=== PATIENT | female | born 1975 | race Hispanic/Latino ===

== ENCOUNTER 2021-04-16 03:04 | Emergency (ER) | payer OTHER ==
--- OUTSIDE RECORDS SUMMARY | 2021-04-16 03:11 | XMS REPORT | Continuity of Care Document ---
:1975 Author Organization [facility] t Address [address] [place] [address] Care Team Providers Name Role Phone Tyron NGO, Siraj Primary Care Physician DR STEFANY Attending Clinician Unavailable DR Marcella ROY Attending Clinician Unavailable DR CINTHIA Attending Clinician Unavailable JOSEPHINE Attending Clinician Unavailable AMARJIT Attending Clinician Unavailable DR SETH Attending Clinician Unavailable AMARJIT NGO Attending Clinician Unavailable AVERY FRY DR Attending Clinician Unavailable DR MEET Attending Clinician Unavailable Amarjit, Flory Attending Clinician 3, Pauline Mr Attending Clinician Unavailable DR Walter CAMP Attending Clinician Unavailable DR RACHEL Attending Clinician Unavailable Haseeb Benjamin MD Attending Clinician Eric NGO Attending Clinician DR Roxana YEE Attending Clinician Unavailable ERIC Attending Clinician Unavailable DR Bebeto VALENTE Attending Clinician Unavailable DR MESFIN Attending Clinician Unavailable DASHAWN Attending Clinician Unavailable ARCENIO Attending Clinician Unavailable DR Manoj SORTO Attending Clinician Unavailable DR TYRON Attending Clinician Unavailable DR MARVIN Attending Clinician Unavailable DR MAKEDA Attending Clinician Unavailable Parish CANCHOLA, LD Attending Clinician DR TRIPP Attending Clinician Unavailable YOANNA Attending Clinician Unavailable JANICE Attending Clinician Unavailable BJ Attending Clinician Unavailable SHANNON Attending Clinician Unavailable AUSTIN Attending Clinician Unavailable LUIS BENJAMIN Attending Clinician Unavailable DR BHAVESH Attending Clinician Unavailable DR MELQUIADES Attending Clinician Unavailable DR ELLIOTT Attending Clinician Unavailable DR STEFANY Admitting Clinician Unavailable DR Marcella ROY Admitting Clinician Unavailable DR CINTHIA Admitting Clinician Unavailable AMARJIT Admitting Clinician Unavailable SETH, Admitting Clinician Unavailable AMARJIT NGO Admitting Clinician Unavailable AVERY FRY DR Admitting Clinician Unavailable DR MEET Admitting Clinician Unavailable DR Walter CAMP Admitting Clinician Unavailable DR RACHEL Admitting Clinician Unavailable DR Roxana YEE Admitting Clinician Unavailable ERIC Admitting Clinician Unavailable DR Bebeto VALENTE Admitting Clinician Unavailable DR MESFIN Admitting Clinician Unavailable DASHAWN Admitting Clinician Unavailable DR Manoj SORTO Admitting Clinician Unavailable DR TYRON Admitting Clinician Unavailable DR MARVIN Admitting Clinician Unavailable DR MAKEDA Admitting Clinician Unavailable DR TRIPP Admitting Clinician Unavailable LUIS BENJAMIN Admitting Clinician Unavailable DR BHAVESH Admitting Clinician Unavailable DR MELQUIADES Admitting Clinician Unavailable DR ELLIOTT Admitting Clinician Unavailable Payers Payer Name Policy Type Policy Effective Date Expiration Date Sour ce Number MEDICAID - [id number] [facility] MEDICAID MGD 00:00:00 - Medical [facility] STAR [id number]-PresentMedic aid Contracted Problems Condition Condition Condition Status Onset Resolution Last Treating Co mments Source Name Details Category Date Date Treatment Clinician Date Cholelithi Cholelithi Disease Active C CA [facility] asis 6-24 [facility] - 00:00: Medical Center History of History of Problem Resolve Univers Chronic Chronic HL7.CCDAR2 [place] headaches [place] of History of Problem Resolve Univers malignant malignant HL7.CCDAR2 d ity of neoplasm neoplasm [place] of breast of breast Phys ici ans Chronic Chronic Problem Active Univers intractabl intractabl HL7.CCDAR2 ity of e e [place] headache, headache, Phys ici unspecifie unspecifie an s d headache d headache type type Acute Acute Problem Active Univers adjustment adjustment HL7.CCDAR2 ity of disorder disorder [place] with mixed with mixed Ph ysici anxiety anxiety ans and and depressed depressed mood mood Malignant Malignant Problem Active Uni vers neoplasm neoplasm HL7.CCDAR2 it y of of right of right [place] female female Physici breast, breast, ans unspecifie unspecifie d estrogen d estrogen receptor receptor status, status, unspecifie unspecifie d site of d site of breast breast Major Major Problem Active Univers depression depression HL7.CCDAR2 ity of , , [place] recurrent, recurrent, Ph ysici chronic chronic ans Anxiety Anxiety Problem Active Univers disorder disorder HL7.CCDAR2 it y of [place] Physici ans 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.CCDAR2 ity of disorder disorder [place] Physici ans Mild Mild Problem Active Univers intellectu intellectu HL7.CCDAR2 ity of al al [place] disability disability Ph ysici ans Anemia Anemia Problem Active Univers HL7.CCDAR2 ity of [place] Physici ans Personal Diagnosis Active 2021-04-03 M emoria history of 02:56:02 l malignant Personal Her magdaleno neoplasm history of of breast malignant neoplasm of breast Active Diagnosis 04/03/2021 [facility] Encounter Diagnosis Active 2021-02-23 Memoria for 02:48:30 l Judah test, Encounter result for negative test, result negative Active Diagnosis 02/23/2021 [facility][1] Atypical Problem Active 2021-04-03 Mem oria squamous 02:56:02 l cells of Atypical Herm jasen undetermin squamous ed cells of significan undetermin ce on ed cytologic significan smear of ce on cervix cytologic (ASC-US) smear of cervix (ASC-US) Active Problem 04/03/2021 [facility] Cervical Problem Active 2021-04-03 Mem oria high risk 02:56:02 l human Cervical Harry n papillomav high risk irus (HPV) 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 Active Problem 04/03/2021 [facility] Abnormal Problem Active 2021-04-03 Mem oria uterine 02:56:02 l and Abnormal Harry n vaginal uterine bleeding, and unspecifie vaginal d bleeding, unspecifie d Active Problem 04/03/2021 [facility] Unspecifie Diagnosis Active 2020-11-18 Memoria d ovarian 03:46:21 l cyst, Judah right side Unspecifie d ovarian cyst, right side Active Diagnosis 11/18/2020 [facility][1] Other Diagnosis Active 2021-04-03 Mem oria ovarian 02:56:02 l cyst, Other [place] right side ovarian cyst, right side Active Diagnosis 04/03/2021 [facility][1] Acute Diagnosis Active 2021-04-03 Mem oria vaginitis 02:56:01 l Acute Judah vaginitis Active Diagnosis 04/03/2021 [facility][1] Allergies, Adverse Reactions, Alerts Allergy Allergy Status Severity Reaction(s) Onset Inactive Treating Comm ents Source Name Type Date Date Clinician Cipro Cipro Active Info Not Memoria Available 4-22 l 00:00: Judah 00 Shellfis Propensi Active Shortness Of [facility] Bre[facility] - Containi adverse 00:00: Medical ng reaction 00 [employer] s Diclofen Propensi Active Anaphylaxis 2018-[address] [facility] ty to 1-06 [facility] - adverse 00:00: Medical reaction 00 [facility] Latex Propensi Active Dermatitis, 2018-[address] [facility] to Itching, 106 [facility] - adverse Rash 00:00: Medical reaction 00 [facility] Penicill Propensi Active Anaphylaxis 2018-[address] ins ty to 1-06 [facility] - adverse 00:00: Medical reaction 00 Center s Ciproflo Propensi Active Shortness Of 2016-[address] xacin ty to Breath 2-13 [facility] - adverse 00:00: Medical reaction 00 [facility] Penicill drug Active Anaphylaxis Uni vers ins allergy ity of [place] Physici ans Zipsor drug Active Anaphylaxis Unive rs CAPS allergy ity of [place] Physici ans Family History Family Member Diagnosis Comments Start Date Stop Date Source Natural father Cancer [facility] Natural father Hypertension [facility] Natural mother Cancer [facility] Natural mother Hypertension [facility] Social History Social Habit Start Date Stop Date Quantity Comments Source Sex Assigned At [facility] Medical [place] Tobacco use and 2020-04-02 2020-04-02 Never used [facility] - exposure 00:00:00 00:00:00 Medical Center Alcohol intake 2020-04-02 2020-04-[address] [facility] - 00:00:00 00:00:00 non-drinker of Medical Ce nter alcohol (finding) Smoking Status Start Date Stop Date Source Never smoker [facility] Medications Ordered Filled Start Stop Current Ordering Indication Dosage Frequency Signature Comments Components Source Medication Medication Date Date Medication? Clinician (SIG) Name Name Nerlynx Yes Maddie 6 tablets Memor ia 6-25 Avery with food l 02:56: Pelegrina Judah 02 Fluoxetine Yes Maddie 1 tablet Mem oria HCl 6-25 Avery l 02:56: Pelegrina [place] 02 Wellbutrin Yes Maddie 1 tablet Mem oria XL 6-25 Avery in the l 02:56: Pelegrina morning Lindy nn 02 Ibuprofen Yes Maddie 1 tablet Ted gomez 6-25 Avery with food l 02:56: Pelegrina or milk as He rmann 02 needed Abilify Yes Maddie 1 tablet Memori a 6-25 Avery l 02:56: Pelegrina Judah 02 Clonazepam Yes Maddie 1 tablet Mem oria 6-25 Avery l 02:56: Pelegrina Judah 02 Fareston Yes Maddie 1 tablet Memor ia 6-25 Avery l 02:56: Pelegrina [place]sm[place] 02 Prozac Yes Maddie not Memoria 6-25 Avery defined l 02:56: Pelegrina [place] 02 Nerlynx Yes Maddie 6 tablets Memor ia 6-25 Avery with food l 02:56: Pelegrina Judah 02 Fluoxetine Yes Maddie 1 tablet Mem oria HCl 6-25 Avery l 02:56: Pelegrina Judah 02 Wellbutrin Yes Maddie 1 tablet Mem oria XL 6-25 Avery in the l 02:56: Pelegrina morning Lindy nn 02 Ibuprofen Yes Maddie 1 tablet Ted gomez 6-25 Avery with food l 02:56: Pelegrina or milk as He rmann 02 needed Abilify Yes Maddie 1 tablet Memori a 6-25 Avery l 02:56: Pelegrina Judah 02 Clonazepam 2021-0 Yes Maddie 1 tablet Mem oria 6-25 Avery l 02:56: Pelegrina Judah Fareston Yes Maddie 1 tablet Memor ia 6-25 Avery l 02:56: Pelegrina Judah Prozac Yes Maddie not Memoria 6-25 Avery defined l 02:56: Pelegrina Judah Nerlynx Yes Maddie 6 tablets Memor ia 6-25 Avery with food l 02:56: Pelegrina Judah Fluoxetine Yes Maddie 1 tablet Mem oria HCl 6-25 Avery l 02:56: Pelegrina Judah Wellbutrin Yes Maddie 1 tablet Mem oria XL 6-25 Avery in the l 02:56: Pelegrina felecia Rodgersa nn 02 Ibuprofen Yes Maddie 1 tablet Ted gomez 6-25 Avery with food l 02:56: Pelegrina or milk as He rmann 02 needed Abilify Yes Maddie 1 tablet Memori a 6-25 Avery l 02:56: Pelegrina Judah Clonazepam Yes Maddie 1 tablet Mem oria 6-25 Avery l 02:56: Pelegrina Judah Fareston Yes Maddie 1 tablet Memor ia 6-25 Avery l 02:56: Pelegrina Judah Prozac Yes Maddie not Memoria 6-25 Avery defined l 02:56: Pelegrina Judah Miconazole Yes Maddie 1 Memoria 2-11 Avery applicatio l 00:00: Pelegrina n to [place] 00 affected area Miconazole Yes Maddie 1 Memoria 2-11 Avery applicatio l 00:00: Pelegrina n to Judah 00 affected area Miconazole Yes Maddie 1 Memoria 2-11 Avery applicatio l 00:00: Pelegrina n to Judah 00 affected area FLUOXETINE Yes 60mg Take [address] HCL (PROZAC 6-24 by mouth Luke s - ORAL) 16:06: once. [address] clonazePAM Yes 1mg QD Take [address] (KLONOPIN) 6-24 by [facility] - 1 MG tablet 16:06: daily . Med ical 37 Center BUPROPION 2019-0 Yes 300mg Take [address] HCL 6-24 mg by [facility] - (WELLBUTRIN 16:06: mouth . Med ical ORAL) 37 Center ibuprofen 2020-0 Yes 800mg Take [address] (ADVIL,MOTR 6-24 mg by [facility] - [place]) 800 MG 16:06: mouth Medica l tablet 37 every 6 Center (six) hours as needed for Pain. acetaminoph 2020-0 Yes 500mg Take [address] en 6-24 mg by [facility] - (TYLENOL) 16:06: mouth Medical 500 MG 37 every 6 Center tablet (six) hours as needed for Pain. HYDROcodone 2019-0 Yes 1{tbl} Take [address] -acetaminop 6-24 tablet by Bing es - hen (NORCO 16:06: mouth Medica l 5-325) 37 every 6 Center 5-325 mg (six) per tablet hours as needed for Pain. multivitami 2019-0 Yes 1{tbl} QD Take [address] n per 6-24 tablet by [facility] - tablet 16:06: mouth Medical 37 daily. Center metFORMIN 2019-0 Yes 500mg Take [address] (GLUCOPHAGE 6-24 mg by [facility] - ) 500 MG 16:06: mouth Medical tablet 37 once. Center albuterol 2019-0 Yes 1{ampul Take [address] (ACCUNEB) 6-24 e} ampule by [facility] - 0.63 mg/3 16:06: nebulizati Me dical mL 37 on every 6 Center nebulizer (six) solution hours as needed for Wheezing. diphenhydrA 0 Yes 25mg Take [address] MINE 6-24 by mouth [facility] - (BENADRYL) 16:06: every Medica l 25 mg 37 night as Center tablet needed for Sleep. Ferrous Ferrous 2017-10 Yes ONEL Q0.5D TAKE 1 Un anastacio Sulfate 325 Sulfate 325 0-04 [place] TABLET ity of (65 Fe) MG (65 Fe) MG 00:00: N.P. TWICE [place] Oral Tablet Oral Tablet 00 DAILY. Physici ans Desvenlafax Desvenlafax Yes KAIRAV Take one Univers ine ine - YOANNA Solis tablet ity of Succinate Succinate 00:00: daily. [place] ER 50 MG ER 50 MG 00 Physici Oral Tablet Oral Tablet a ns Extended Extended Release 24 Release 24 Hour Hour FLUoxetine FLUoxetine Yes Uni vers HCl TABS HCl TABS ity of [place] Physici ans ClonazePAM ClonazePAM Yes Q0.3333D TAKE 1 Univers 0.5 MG Oral 0.5 MG Oral TABLET 3 ity of Tablet Tablet TIMES [place] DAILY Physici NEEDED. ans HYDROCHLORO HYDROCHLORO Yes U nivers THIA TAB THIA TAB ity of [place] Physici ans Diflucan Diflucan Yes QD TAKE 1 Unive rs 150 MG Oral 150 MG Oral TABLET ity of Tablet Tablet DAILY [place] DIRECTED. Physici ans Hydrocodone Hydrocodone Yes 1 TAKE 1 Univers -Acetaminop -Acetaminop TABLET ity of hen 5-325 hen 5-325 PRN [place] MG Oral MG Oral Physici Tablet Tablet ans MetFORMIN MetFORMIN Yes QD TAKE 1 Uni vers HCl - 500 HCl - 500 TABLET ity of MG Oral MG Oral DAILY WITH Omar as Tablet Tablet FOOD. Physici ans Fareston 60 Fareston 60 Yes U nivers MG Oral MG Oral ity of Tablet Tablet [place] Physici ans Herceptin Herceptin Yes INFUSE ML Univers SOLR SOLR ity of [place] Physici ans DOCEtaxel DOCEtaxel Yes Unive rs SOLN SOLN ity of [place] Physici ans CARBOplatin CARBOplatin Yes U nivers SOLN SOLN ity of [place] Physici ans Ondansetron Ondansetron Yes U nivers 8 MG Oral 8 MG Oral ity o f Tablet Tablet [place] Disintegrat Disintegrat P hysici ing ing ans BuPROPion BuPROPion Yes KAIRAV 1 QD TAKE 1 U nivers HCl ER (SR) HCl ER (SR) YOANNA Solis TABLET ity of 200 MG Oral 200 MG Oral DAILY. [place] Tablet Tablet Physici Extended Extended ans Release 12 Release 12 Hour Hour Vital Signs Vital Name Observation Time Observation Value Comments Source Weight 2021-01-29 [facility] n 21:00:00 Height 2021-01-29 [facility] 21:00:00 Temperature Oral 2021-01-29 98.5 F [facility] rmann (F) 21:00:00 Diastolic (mm Hg) 2021-01-29 [facility] ermann 21:00:00 Systolic (mm Hg) 2021-01-29 [facility] rmann 21:00:00 Weight 2020-12-18 Khai Mcdonald n 20:30:00 Height 2020-12-18 Khai Mcdonald n 20:30:00 Temperature Oral 2020-12-18 96.6 F [facility] rmann (F) 20:30:00 Diastolic (mm Hg) 2020-12-18 [facility] Roxana ermann 20:30:00 Systolic (mm Hg) 2020-12-18 [facility] Mina rmann 20:30:00 Weight 2020-11-20 Khai Mcdonald n 20:45:00 Height 2020-11-20 Khai Mcdonald n 20:45:00 Diastolic (mm Hg) 2020-11-20 [facility] Roxana ermann 20:45:00 Systolic (mm Hg) 2020-11-20 [facility] rmann 20:45:00 Systolic blood 2020-10-15 113 mm[Hg] [facility] - pressure 10:04:00 [facility] Diastolic blood 2020-10-15 61 mm[Hg] [facility] - pressure 10:04:00 [facility] Heart rate 2020-10-15 78 /min [facility] - 10:04:00 [facility] Respiratory rate 2020-10-15 20 /min [facility] - 10:04:00 [facility] Oxygen saturation 2020-10-15 100 /min [facility] St [facility] - in Arterial blood 10:04:00 [facility] nter by Pulse oximetry Body weight 2020-10-[address] [facility] - 09:58:00 [facility] BMI 2020-10-15 28.90 kg/m2 [facility] - 09:58:00 [facility] BP Systolic 2018-07-05 99 mm[Hg] [facility] 10:26:00 [place] Physician s BP Diastolic 2018-07-05 63 mm[Hg] [facility] 10:26:00 [place] Physician s Height 2018-07-05 68 [in_us] University 10:26:00 [place] Physician s Weight 2018-07-05 168 [lb_av] [facility] 10:26:00 [place] Physician s Body Mass Index 2018-07-05 25.54 kg/m2 University o f Calculated 10:26:00 [place] Physician s Heart Rate 2018-07-05 72 /min [facility] 10:26:00 [place] [facility]ician s Respiration Rate 2018-07-05 16 /min [facility] 10:26:00 [place] Physician s O2 SAT 2018-07-05 100 % [facility] 10:26:00 [place] Physician s BP Systolic 2018-06-22 100 mm[Hg] Location: [facility] 16:14:00 Position: [place] Physician s Sitting BP Diastolic 2018-06-22 62 mm[Hg] Location: [facility]; [facility] 16:14:00 Position: [place] Physician s Sitting Height 2018-06-22 68 [in_us] University 16:14:00 [place] Physician s Weight 2018-06-22 167.4 [lb_av] University 16:14:00 [place] Physician s Body Mass Index 2018-06-22 25.45 kg/m2 University o f Calculated 16:14:00 [place] Physician s Temperature 2018-06-22 98.2 [degF] [facility] 16:14:00 [place] Physician s Heart Rate 2018-06-22 68 /min [facility] 16:14:00 [place] Physician s Respiration Rate 2018-06-22 16 /min [facility] 16:14:00 [place] Physician s O2 SAT 2018-06-22 100 % [facility] 16:14:00 [place] Physician s Procedures Procedure Date / Time Performing Clinician Source Performed MR BREAST BILATERAL WITH & 2020-10-15 12:00:00 Amarjit, Natalia N az [facility] - WITHOUT IV CONTRAST Medical Cent er [QLH] CBC (INCLUDES 2018-06-22 [facility] DIFF/PLT) Physicians [QLH] CMP W/EGFR 2018-06-22 00:00:00 University [facility] Physicians History of Axillary University o f [place] lymphadenectomy Physicians History of Pancreatectomy Univer [facility] Physicians History [facility]en[facility] Physicians History of Tonsillectomy [facility] Physicians History of Loop [facility] [place] electrosurgical excision Physici ans procedure Plan of Care Planned Activity Planned Date Details Comments Source Future Scheduled 2020-10-[address] [facility] - Test 00:00:00 (12+) [code = [facility] DEPRESSION SCREENING (12+)] Future Scheduled 2020-06-[address] [facility] - Test 00:00:00 (#1) [code = Medical Center INFLUENZA VACCINE (#1)] Future Scheduled [address] [facility] - Test 00:00:00 malignant neoplasm of Medica l Center cervix (procedure) [code = 999319613] Encounters Start End Encounter Admission Attending Care Care Encounter Source Date/Time Date/Time Type Type Clinicians Facility Department ID 2019-12-15 Inpatient E [facility] [id number] [facility] 23:50:00 [facility] 2019-10-23 Inpatient E [facility] ECC [id number] [facility] 22:27:00 [facility] 2019-07-24 Inpatient C MCCALL, LONG [facility] RAD [id number] [facility] 09:30:00 [facility] 2019-04-03 Inpatient C MCCALL, [facility] RAD [id number] [facility] 09:00:00 [facility] 2019-04-03 Inpatient C MCCALL, [facility] RAD [id number] [facility] 09:00:00 [facility] 2019-03-21 Inpatient C MCCALL, [facility] CARDIO [id number] [facility] 17:00:00 [facility] 2019-01-08 Inpatient C MCCALL, [facility] RAD [id number] [facility] 09:00:00 [facility] 2017-09-26 Inpatient C POPATIA, [facility] CATH [id number] [facility] 11:00:00 [facility] 2017-07-05 Inpatient C CINTHIA, [facility] RAD [id number] [facility] 15:30:00 [facility] 2021-04-02 2021-04-02 Outpatient SEPTIMUS, [facility] [id number] [place] 00:00:00 00:00:00 IVETT [address] 2021-03-24 2021-03-25 Emergency E ANN, C WWECC [id number] [facility]:58[facility] 2021-03-12 Outpatient [facility] [id number] [place] 00:00:00 00:00:[address] 2021-01-29 2021-01-29 Outpatient C Funsho C [facility] [id number] [facility] 16:00:00 16:00:00 Jairo Maddox MD PhD PA PhD PA 2021-01-29 2021-01-29 Outpatient C [facility] [id number] [facility] 16:00:00 16:00:00 Jairo Maddox MD PhD PA PhD PA 2021-01-29 2021-01-29 Outpatient C [facility] [id number] [facility] 16:00:00 16:00:00 Jairo Maddox MD PhD PA PhD PA 2021-01-06 2021-01-06 Outpatient C AVERY [facility] RAD [id number] [facility] 15:01:00 23:59:00 Nas FRY [facility] 2021-01-01 2021-01-01 Outpatient C [facility] [id number] [facility] 13:31:00 13:31:00 Jairo Maddox MD PhD PA PhD PA 2021-01-01 2021-01-01 Outpatient C Funsh[facility] [id number] [facility] 13:31:00 13:31:00 Jairo Maddox MD PhD PA PhD PA 2021-01-01 2021-01-01 Outpatient C Funsh[facility] [id number] [facility] 13:31:00 13:31:00 Jairo Maddox MD PhD PA PhD PA 2020-12-19 2020-12-19 Outpatient C Funsho C [facility] [id number] [facility] 09:08:00 09:08:00 Jairo Maddox MD PhD PA PhD PA 2020-12-19 2020-12-19 Outpatient C [facility] [id number] [facility] 09:08:00 09:08:00 Jairo Maddox MD PhD PA PhD PA 2020-12-19 2020-12-19 Outpatient C Funsh[facility] [id number] [facility] 09:08:00 09:08:00 Jairo Maddox MD PhD PA PhD PA 2020-12-18 2020-12-18 Outpatient C Funsho [facility] [id number] [facility] 15:30:00 15:30:00 Jairo Maddox MD PhD PhD PA-GP PA-GP 2020-12-18 2020-12-18 Outpatient C [facility] [id number] [facility] 15:30:00 15:30:00 Jairo Maddox MD PhD PhD [facility] 2020-12-18 2020-12-18 Outpatient C Funsho C [facility] [id number] [facility] 15:30:00 15:30:00 Jairo Maddox MD PhD PhD [facility] 2020-11-20 2020-11-20 Outpatient C Funsho C [facility] [id number] [facility] 15:45:00 15:45:00 Jairo Maddox MD PhD PhD [facility] 2020-11-20 2020-11-20 Outpatient C Funsho C [facility] [id number] [facility] 15:45:00 15:45:00 Jairo Maddox MD PhD PhD [facility] 2020-11-20 2020-11-20 Outpatient C Funsho [facility] [id number] [facility] 15:45:00 15:45:00 Jairo Maddox MD PhD PhD [facility] 2020-11-18 2020-11-18 Outpatient C Funsho C [facility] [id number] [facility] 16:39:00 16:39:00 Jairo Maddox MD PhD PA PhD [place] 2020-11-18 2020-11-18 Outpatient C Funsho [facility] [id number] [facility] 16:39:00 16:39:00 Jairo Maddox MD PhD PA PhD [place] 2020-11-18 2020-11-18 Outpatient C Funsh[facility] [id number] [facility] 16:39:00 16:39:00 Jairo Maddox MD PhD PA PhD [place] 2020-11-17 2020-11-17 Outpatient C Funsho C [facility] [id number] [facility] 17:48:00 17:48:00 Jairo Maddox MD PhD PA PhD PA 2020-11-17 2020-11-17 Outpatient C Funsho C [facility] [id number] [facility] 17:48:00 17:48:00 Jairo Maddox MD PhD PA PhD PA 2020-11-17 2020-11-17 Outpatient C Funsho C [facility] [id number] [facility] 17:48:00 17:48:00 Jairo Maddox MD PhD PA PhD PA 2020-10-28 2020-10-28 Outpatient C Funsho C [facility] [id number] [facility] 14:33:00 14:33:00 Jairo Maddox MD PhD PA PhD PA 2020-10-28 2020-10-28 Outpatient C Funsho C [facility] [id number] [facility] 14:33:00 14:33:00 Jairo Maddox MD PhD PA PhD PA 2020-10-28 2020-10-28 Outpatient C Funsho C [facility] [id number] [facility] 14:33:00 14:33:00 Jairo Maddox MD PhD PA PhD PA 2020-10-28 2020-10-28 Outpatient C Fun[facility] [id number] [facility] 12:15:00 12:15:00 Jario Maddox MD PhD PhD [facility] 2020-10-28 2020-10-28 Outpatient C Funsho C [facility] [id number] [facility] 12:15:00 12:15:00 Jairo Maddox MD PhD PhD [facility] 2020-10-28 2020-10-28 Outpatient C Funsho C [facility] [id number] [facility] 12:15:00 12:15:00 Jairo Maddox MD PhD PhD [facility] 2020-10-17 2020-10-17 Outpatient Blaine DSOUZACLAIR [facility] [id number] [facility] 15:40:00 23:59:00 [facility] 2020-09-12 2020-09-12 Outpatient C CLAIR DSOUZA [facility] [id number] [facility] 15:24:00 23:59:00 Medica l [place] 2020-08-25 2020-08-25 Emergency E CONRADO, [facility] [id number] [facility] 10:49:00 11:38:00 ALMA DELIA Medica l [place] 2020-06-09 2020-06-09 Emergency E SETH, [facility] [id number] [place] 00:30:00 00:55:00 JAMES Medic al [place] 2020-06-01 2020-06-02 Emergency E RACHEL [facility] [id number] [place] 23:16:00 00:00:00 ROBERTH Medica l KAI [place] 2020-04-15 2020-04-15 Office Bonefas, [facility] 1.2.840.114 [id number] 11:41:14 15:50:34 Visit Myra T Pauline 350.1.13.21 0.2.7.2.686 [id number] 2020-04-15 2020-04-15 Office Eric, [facility] 1.2.840.114 [id number] 11:40:53 14:10:47 Visit Mitul Pauline 350.1.13.21 0.2.7.2.686 [id number] 2020-04-07 2020-04-07 Emergency E JOSELITO, [facility] [id number] 01:02:00 01:50:00 DANNY Medica l [place] 2020-04-03 2020-04-03 Emergency E RAMOS, [facility] [id number] 08:29:00 13:45:00 ROBERTH Medica l [facility] 2020-03-22 2020-03-22 Emergency E SIDRA, [facility] [id number] 13:23:00 14:52:00 GIANLUCA Medica l [place] 2020-03-21 2020-03-22 Emergency E ANN, [facility] [id number] 23:22:00 00:50:00 JAMES Medic al [place] 2020-03-21 2020-03-21 Emergency E JOSELITO, [facility] [id number] [place] 15:02:00 17:46:00 DANNY Medica l [place] 2020-03-20 2020-03-20 Emergency E ANN, [facility] [id number] [place] 20:27:00 22:15:00 JAMES Medic al [place] 2020-02-28 2020-02-28 Office Eric [facility] 1.2.840.114 [id number] 13:05:45 13:49:45 Visit Mitul Pauline 350.1.13.21 0.2.7.2.686 [id number] 2020-02-25 2020-02-26 Emergency E SETH, [facility] [id number] 23:26:00 00:35:00 JAMES Medic al [place] 2020-01-31 2020-01-31 [facility] 1.2.840.114 [id number] 14:45:33 15:59:18 Visit Mitul Pauline 350.1.13.21 0.2.7.2.686 [id number] 2020-01-17 2020-01-18 Outpatient JOHN MUIR [facility], [facility] [id number] [place] 00:00:00 00:00:00 DANIEL [address] 2020-01-17 2020-01-17 Emergency [facility], [facility] [id number] [place] 00:00:00 00:00:00 BRIAN [address] 2019-12-30 2019-12-30 Emergency E MACARIO, [facility] [id number] 07:53:00 09:30:00 DOMENICA Medica l [place] 2019-12-15 2019-12-16 Emergency E JOSELITO, [facility] [id number] 23:53:00 03:30:00 DANNY Medica l [place] 2019-11-28 2019-11-29 Inpatient E RAYMOND SMITH [facility] [id number] [place] 01:20:00 18:00:00 Medica l [place] 2019-11-26 2019-11-26 Emergency E ANN, [facility] [id number] [place] 03:27:00 04:45:00 JAMES Medic al [place] 2019-11-18 2019-11-18 Emergency E MARVIN, [facility] [id number] [place] 12:07:00 16:30:00 VANDANA Medica l [place] 2019-11-07 2019-11-07 Emergency E MARVIN, [facility] [id number] [place] 02:35:00 04:15:00 VANDANA Medica l [place] 2019-10-23 2019-10-24 Emergency E , [facility] [id number] [place] 22:33:00 02:00:00 WASIM Medica l [place] 2019-08-15 2019-08-15 Office Parish, [facility] 1.2.840.114 [id number] 13:16:12 14:16:12 Visit Jessica Carpenter 350.1.13.21 0.2.7.2.686 [id number] 2019-08-15 2019-08-15 Office Bonefas, [facility] 1.2.840.114 [id number] 11:45:01 12:57:36 Visit Myra Carpenter 350.1.13.21 0.2.7.2.686 [id number] 2019-03-29 2019-03-29 Emergency E CONRADO, [facility] [id number] [place] 17:30:00 20:30:00 ALMA DELIA Medica l [place] 2019-03-29 2019-03-29 Emergency E MHFB [facility] [id number] [facility] 16:59:00 16:59:00 2019-03-16 2019-03-16 Emergency E RACHEL, [facility] [id number] [place] 15:00:00 20:30:00 [facility]-02 2019[facility]03-02 [facility] [id number] [place] 16:06:00 23:59:00 KING Medica l [place] 2018-11-08 2018-11-08 Outpatient C AMARJIT NGO, [facility] CARDIO [id number] [place] 13:35:00 23:59:00 NATALIA Medic al [place] 2018-08-29 2018-08-29 Tanna LENZ [facility] [id number] Univers 15:00:00 15:00:00 t; TONI LENZ ity o f KAIRAV, M.D. [facility] 2018-07-06 2018-07-06 Appointmen JANICE, [facility] Community [id number] Univers 15:00:00 15:00:00 t; OLEKSANDR, Health and it y of Reny CAMACHO [facility] Kae emmanuel OLEKSANDR, Center - Physic i DAriesOAries Mckinney ans 2018-07-05 2018-07-05 Appointmen YOANNA [facility] [id number] Univers 10:00:00 10:00:00 t; TONI LENZ Health and it y of Irma MUÑOZ [facility] - Physici Mckinney ans 2018-07-04 2018-07-04 Appointmen YOHAN LORENZO [facility] [id number] Univers 15:00:00 15:00:00 t; ISABELA LORENZO i ty of [facility] Physici ans 2018-06-27 2018-06-27 Appointmen SHANNON [facility] [id number] Univers 15:00:00 15:00:00 t; SHELBY ORTEGA ity Irma RYAN [facility] 2018-06-22 2018-06-22 Appointmen AUSTIN [facility] [id number] Univers 15:45:00 15:45:00 t; [facility] Center - Phys ici Mckinney ans 2017-08-01 2017-08-02 Emergency E BHAVESH [facility] [id number] [place] 22:00:00 11:47:00 BLAZE Medica l Center 2017-07-17 2017-07-17 Emergency E REGINALDO GALLAGHER [facility] [id number] [place] 17:36:00 18:50:00 Medica l [place] 2017-04-04 2017-04-04 Outpatient [facility] [id number] Access 00:00:00 00:00:00 H, PROVIDER Mina diego 2016-08-12 2016-08-12 Outpatient [facility] [id number] Access 00:00:00 00:00:00 H, PROVIDER Mina diego 2015-11-17 2015-11-17 Outpatient [facility] [id number] Access 00:00:00 00:00:00 H, PROVIDER Mina diego 2015-11-04 2015-11-04 Outpatient [facility] [id number] Access 00:00:00 00:00:00 H, PROVIDER Mina diego 2015-10-28 2015-10-28 Outpatient [facility] [id number] Access 00:00:00 00:00:00 H, PROVIDER Mina diego 2015-10-24 2015-10-24 Outpatient [facility] [id number] Access 00:00:00 00:00:00 H, PROVIDER Mina diego 2015-10-23 2015-10-23 Outpatient [facility] [id number] Access 00:00:00 00:00:00 H, PROVIDER Mina diego 2015-10-09 2015-10-09 Outpatient [facility] [id number] Access 00:00:00 00:00:00 H, PROVIDER Mina diego 2015-09-25 2015-09-25 Outpatient [facility] [id number] Access 00:00:00 00:00:00 H, PROVIDER Mina diego 2015-09-24 2015-09-24 Outpatient [facility] [id number] Access 00:00:00 00:00:00 H, PROVIDER Mina diego 2015-09-22 2015-09-22 Outpatient [facility] [id number] Access 00:00:00 00:00:00 H, PROVIDER Mina diego 2015-09-16 2015-09-16 Outpatient [facility] [id number] Access 00:00:00 00:00:00 H, PROVIDER Mina diego 2015-07-14 2015-07-14 Outpatient [facility] [id number] Access 00:00:00 00:00:00 H, PROVIDER Mina diego 2014-05-23 2014-05-23 Outpatient [facility] [id number] Access 00:00:00 00:00:00 H, PROVIDER Mina diego 2014-04-04 2014-04-04 Outpatient [facility] [id number] Access 00:00:00 00:00:00 H, PROVIDER Mina diego Results Test Description Test Time Test Comments Results Result Sourc e Comments MRI ABD W/WO 2021-03-30 CONTRAST 08:26:16 [facility] 1975 Sex: F MR I OF ABDOMEN WITH AND WITHOUT GADOLINIUMHISTORY: Breast cancerLocation R 16TECHNIQUE: Axial T1, axial T1 echo, axial T2 fat-sat, coronal T1, coronal T2, coronal T2 dual echo, axial T1 post VIBE, coronal T1 post. Contrast: 19 mL Dotarem IV.COMPARISON: CT abdomen pelvis dated 03/13/2021. Bone scan dated 03/2021.FINDINGS:Lung bases: No effusions.Liver: Diffuse phase signal dropout at liver parenchyma compatible with steatosis. Previously described 3 cm area at the left lobe of liver, low signal on T1. On dual echo imaging, there is focal diffuse phase signal dropout in this area compatible with focal steatosis. Postcontrast, no abnormal enhancement is seen in the area. Gallbladder: Absent. No biliary dilatation.Pancreas: The pancreatic tail is surgically absent. The remainder of the pancreas appears normal.Spleen: Spleen is absent. A small splenule left upper quadrant abdomen measuring 2.7 cm.Kidneys: Unremarkable.Adrenals : UnremarkableBowel: Visible bowel loops are unremarkable.Vascular : Normal size and enhancement.Lymph Nodes: No evidence of lymphadenopathy in the abdomen.Osseous: No aggressive features.Abdominal wall: Postsurgical changes at the midline abdomen.IMPRESSION:1. Previously described 3 cm area at the medial left lobe of liver corresponds to benign focal hepatic steatosis. No suspicious lesions.2. Note prior splenectomy and distal pancreatectomy. Cholecystectomy.Elect ronically signed by: Dianna Mancilla MD 03/30/2021 8:26 AM CDT U/S GUIDANCE 2021-03-27 15:32:21 [facility] 1975 Sex: F Pr ocedure: Ultrasound-guided left brachial vein accessLocation: [id number] Indication: Need for IV access.Comparison: NoneTechnique: Patient was placed supine on a stretcher and the left upper arm prepped and draped. Ultrasound was used to assess the upper arm vasculature.Paired brachial veins are noted. The basilic and cephalic veins are not identified. 1% lidocaine was given. Using ultrasound guidance, one of the brachial veins was accessed with a 21-gauge needle and 5 Bengali micropuncture catheter. An ultrasound image was stored for documentation. The catheter was left in place for IV access. Patient tolerated the procedure well.Impression: Successful image guided brachial vein access.Electronically signed by: Lew France MD 03/27/2021 3:32 PM CDT SARS-CoV (RAPID ANTIGEN) WW 2021-03-25 01:37:00 Test Item Value Reference Range Interpretation Comme nts SARS-CoV (ANTIGEN) (test code = NEGATIVE NEGATIVE COVAG) COVID AG (test code = COVAGC) This test has been marketed under the FDA Emergency Use Authorization (EUA) to meet challenges of the COVID-19 pandemic. The validation standards normally enforced by the FDA and the [employer] of the [place] [employer] (CAP) are more stringent than those required for this test. Therefore, the result should be interpreted with caution and close attention to other clinical and epidemiological data NM BONE SCAN WHOLE BODY IMAGE W [id number] 15:14:40 [facility] 1975 Sex: FBone scanLocation Code: [id number] HISTORY: Finding of serum tumor marker levelCOMPARISON: None.Te chnique: Routine anterior and posterior whole body images of following administration of 25 mCi of technetium 99m MDP. Spot images of the pelvis and proximal femurs were obtained, as well.FINDINGS: There is no abnormal uptake to suggest osseous metastatic disease. Renal excretion is physiologic. Minimal uptake adjacent to the left proximal femur may be secondary to prior trauma. Degenerative changes are noted in the knees.IMPRESSION: No evidence of metastases or other acute osseous abnormality.Electronically signed by: Percy Corral MD 03/16/2021 3:14 PM CDT ABDOMEN AND PELVIS WITH [id number] 11:25:11 [facility] 1975 Sex: FExam: CT abdomen and pelvis with contrast.CLINICAL HISTORY: Primary malignant neoplasm of female right breast; Finding of serum tumor marker level.LOCATION: D4.FINDINGS: Following the administrationof oral and 100 mL Isovue-300 intravenous contrast, multislice axial images are obtained through theabdomen and pelvis during the venous and delayed phases. Coronal and sagittal reconstructed images are obtained and are used in interpretation. Creatinine and GFR are not given.Comparison is made with CT abdomen/pelvis with contrast dated April 03, 2020.Diffuse low density of the liver is suggestive offatty infiltration but not accurately evaluated with contrast. There is a 3.7 cm ill-defined area of hypodensity within the left hepatic lobe. This was not present on the previous study. The liver is at upper size limits measuring 15.1 cm craniocaudal at the midclavicular line which is increased from the previous study. The gallbladder has been surgically removed. The spleen and pancreatic tail have also been surgically removed, stable from the prior exam. The adrenal glands and kidneys are within normal limits. There are bilateral ovarian cysts measuring 3.4 cm and 2.1 cm on the right and on the left measuring 1.9 cm and 1.6 cm. Only a 2.5 cm left ovarian cyst was seen on the previous study. There is an intrauterine device that appears appropriately positioned. There is no significant adenopathy. No free fluid or fluid collections are evident. No focal signs of inflammation are noted. The appendix is normal in appearance. There is a pars defect on the left at L5. Bilateral stable Bartholin's gland cysts are noted measuring 2.4 cm on the right and 3.5 cm on the left. No acute skeletal or soft tissue abnormalities are identified.IMPRESSION:1. There is a 3.7 cm ill-defined area of hypodensity within the left hepatic lobe that was not present on the previous study. No associated contrast enhancement is evident and this may represent focal increased fatty infiltration. However, MRI abdomen without and with contrast would be beneficial for further evaluation and to exclude underlying mass/metastatic lesion.2. Borderline hepatomegaly is increased from the previous study.3. Bilateral ovarian cysts are increased from the previous study measuring up to 3.4 cm.*One or more of the following radiation dose reduction techniques was used: automated exposure control, adjustmentof mA and/or KV according to patient size, and/or utilization of iterative reconstruction technique.Electronically signed by: Arnoldo Jones MD 03/13/2021 11:25 AM CDT CHEST W/ [id number] 11:09:12 [facility] 1975 Sex: FEXAMINATION:CT CHEST W/ CONTRASTCLINICAL INDICATION:Female, 45 years old with Finding of serum tumor marker levelTECHNIQUE: Axial post-contrast contiguous images were obtained through the chest followed by coronal and sagittal multiplanar reformations.One or more of the following dose reduction techniques were used: Automated exposure control, adjustment of the mA and/or kV according to patient size, and/or iterative reconstruction. COMPARISON: 03/16/2019FINDINGS:Chest:Medical Devices: None.Lymph Nodes: There are no pathologically enlarged supraclavicular, mediastinal, or axillary lymph nodes.Lungs/Airways/Pleura: Right upper lobe granuloma is stable. There is no nodule, mass, consolidation, or effusion. The central airways are patent. Heart/Vessels: Heart is normal in size. No coronary artery atherosclerosis is identified. No pericardial effusion is present. Aorta is normal in caliber and contour. No atherosclerosis is identified. Central pulmonary arteries are normal in size.Soft Tissues: Visualized thyroid gland is normal. The esophagus is normal. No soft tissue abnormality of the chest is demonstrated. Clips within medial right breast and right axilla again noted.Upper Abdomen:Abdomen: Visualized upper abdominal structures are within normal limits.Bones: No acute abnormality or suspicious bony lesion.IMPRESSION:No acute intrathoracic abnormality.Electronically signed by: Percy Corral MD 03/13/2021 11:09 AM CDT , MRI BREAST, WITHOUT / WITH IV CONTRAST, [id number] 16:20:00Unlisted Reason for Exam - Click Yes and Enter Reason Below->YesUnlisted Reason for Exam->Malignant neoplasm of unspecified site of right female breast [facility] : 1975 Sex: FMRN#: [id number] - MR, MRI BREAST, WITHOUT / WITH IV CONTRAST, BILATERAL BREAST MRI OF BOTH BREASTS: 10/15/2020LINICAL: 44 year old female with history of right breast cancer status post lumpectomy in 2018. Screening. Correlation is made with a mammogram dated 04-15-20. Comparison is made with a MRI dated 08-13-19. Multiplanar MR images of both brests is performed with and without intravenous gadolinium. 8 cc of Gadavist contrast was injected. DynaCAD was used. 1. Heterogenous fibroglandular tissue with mild background parenchymal enhancement. 2. RIGHT Breast: No suspicious enhaning masses. There are post lumpectomy changes in the posterior upper outer right breast. Susceptibility artifact is present in the retroareolar position at the site of prior benign biopsy. 3. LEFT Breast: No suspicious enhaning masses. Susceptibility artifact is present in the 3:00 position at the site of prior benign biopsy. 4. No suspicious lymphadenopathy. IMPRESSION: No MRI features of malignancy in either breast. The patient will be due for bilateral mammography in April 2021. Results and recommendations were discussed with the patient on 10-15-20. Lamine Peters M.D. rashawn/:10/15/2020 16:20:37 Normal Exam MRI BI-RADS: 2 Benign [id number] MR breast bilateral without & with IV [id number] 16:20:00Interface, External Ris In - 10/16/2020 6:40 AM CSTMRN#: [id number] - MR, MRI BREAST, WITHOUT / WITH IV CONTRAST, BILATERAL BREAST MRI OF BOTH BREASTS: 10/15/2020LINICAL: 44 year old female withhistory of right breast cancer status post lumpectomy in 2018. Screening. Correlation is made witha mammogram dated 04-15-20. Comparison is made with a MRI dated 08-13-19. Multiplanar MR images of both brests is performed with and without intravenous gadolinium. 8 cc of Gadavist contrast was injected. DynaCAD was used. 1. Heterogenous fibroglandular tissue with mild background parenchymal enhancement. 2. RIGHT Breast: No suspicious enhaning masses. There are post lumpectomy changes in the posterior upper outer right breast. Susceptibility artifact is present in the retroareolar position at the site of prior benign biopsy. 3. LEFT Breast: No suspicious enhaning masses. Susceptibility artifact is present in the 3:00 position at the site of prior benign biopsy. 4. No suspicious lymphadenopathy. IMPRESSION: No MRI features of malignancy in either breast. The patient will be due for bilateral mammography in April 2021. Results and recommendations were discussed with the patient on 10-15-20. Lamine Peters M.D. rashawn/:10/15/2020 16:20:37 Normal Exam MRI BI-RADS: 2 [id number] [facility]2020-09-14 10:20:00 Test Item Value Reference Range Interpretation Comments PROLACTIN (test 22.7 ng/mL Reference code = [id number]) Range Femal es Non- 3.0-30.0 10.0- 209.0 Postmenopaus al 2.0-20.0TEST PE RFORMED AT:[facility] [id number] [place] [address]OCJWMKACY LEACH MD FOLLICULAR STIMULATING HORMONE *WW*2020-09-14 10:20:00 Test Item Value Reference Range Interpretation Comments FSH (test code = 14.8 mIU/mL [id number]) Reference Range Follicular Pha se 2.5-10.2 Mid-cycle Peak 3.1-17.7 Luteal Phase 1.5- 9.1 Postmenopausal 23.0-116.3TEST PERFORMED AT:[facility] [id number] [place] [address]OSAFBKACY LEACH MD LUTEINIZING HORMONES WW2020-09-14 10:20:00 Test Item Value Reference Range Interpretation Comments LH (test code = 13.9 mIU/mL Referenc e [id number]) RangeFollicular Phase 1.9-12.5Mid-Cyc le Peak 8.7-76.3Luteal Phase 0.5-16.9Postmen opausal 10.0-54.7TEST P ERFORMED AT:[facility] [id number] [place] [address]KFOEDXIAO LEACH MD HIV *WW*2020-09-12 19:34:00 Test Item Value Reference Range Interpretation Comments HIV-1,2 and p24 (test code = NON-REACTIVE NON-REACTIVE CHIV) HEPATITIS C ANTIBODY *WW*2020-09-12 19:32:00 Test Item Value Reference Range Interpretation Comments HCAB (test code = HCAB) NON-REACTIVE NON-REACTIVE SYPHILIS SCREENING WW2020-09-12 19:12:00 Test Item Value Reference Range Interpretation Comments T PALLIDUM AB (test NON-REACTIVE NON-REACTIVE code = SYPHINT) SYPHC (test code = RPR test has been SYPHC) updated to Treponemal Immunoassay. Interpretation of results is similar HEPATITIS B SURFACE ANTIGEN *WW*2020-09-12 19:11:00 Test Item Value Reference Range Interpretation Comments HBSAG (test code = HBSAG) NON-REACTIVE NON-REACTIVE THYROID PANEL/SCREEN (TSH) *WW*2020-09-12 17:21:00 Test Item Value Reference Range Interpretation Comments TSH (test code = WTSH) 3.060 uIU/mL 0.358-3.740 CBC (INCLUDES AUTOMATED DIFFERENTIAL)*[id number] 16:58:00 Test Item Value Reference Range Interpretation Comments WBC (test code = WBC) 7.9 10\\S\\3/uL 4.5-11.0 RBC (test code = RBC) 3.72 10\\S\\6/uL 4.30-5.70 L HGB (test code = HBG) 11.8 g/dL 12.0-15.5 L HCT (test code = HCT) 37.1 % 35.0-44.0 MCV (test code = MCV) 99.7 fL 81.0-99.0 H MCH (test code = MCH) 31.7 pg 27.0-31.0 H MCHC (test code = MCHC) 31.8 g/dL 32.0-36.0 L RDW (test code = RDW) 12.4 % 11.5-14.5 PLT (test code = PLT) 355 10\\S\\3/uL 130-400 MPV (test code = MPV) 10.7 fL 9.4-12.4 NEUTROP # (test code = NE#) 4.7 10\\S\\3/uL 1.6-8.0 LYMPH # (test code = LY#) 2.4 10\\S\\3/uL 1.1-3.5 MONOCYTE # (test code = MO#) 0.5 10\\S\\3/uL 0.0-1.1 EOSINOPH # (test code = EO#) 0.2 10\\S\\3/uL 0.0-0.7 BASOPHIL # (test code = BA#) 0.1 10\\S\\3/uL 0.0-0.3 IG # (test code = IG#) 0.02 10\\S\\3/uL 0.00-0.06 NRBC # (test code = NRBC#) 0.00 10\\S\\3/uL 0.00-0.01 NEUTROPH % (test code = NE%) 59.5 % 35.0-73.0 LYMPH % (test code = LY%) 30.3 % 20.0-55.0 MONO % (test code = MO%) 6.8 % 2.5-10.0 EOSINOPH % (test code = EO%) 2.1 % 0.0-5.0 BASOPHIL % (test code = BA%) 1.0 % 0.0-2.0 IG % (test code = IG%) 0.3 % 0.0-0.8 NRBC% (test code = NRBC%) 0.0 % 0.0-0.2 MANDIFF (test code = WMDIFF) NO NO RBC MORPH (test code = NORMAL WRBCMOR) TISSUE [id number] 11:26:00Surgical Pathology Report Case: [id number] Authorizing Provider: Mitul Riley MD Collected: 04/02/2020 10:24 AM Ordering Location: [facility] Received: 04/02/2020 11:49 AM SERVICES Pathologist: Brie Nielson MD Specimens: A) - Gallbladder B) -Biopsy, Liver A. GALLBLADDER, CHOLECYSTECTOMY: - CHRONIC CHOLECYSTITIS AND CHOLELITHIASISB. LIVER, MASS, BIOPSY: - BENIGN LIVERPARENCHYMA, NEGATIVE FOR MALIGNANCY (SEE COMMENT) Signing Pathologist Direct Phone Line: [phone] signed by Brie Nielson MD on 04/08/2020 at 11:26 AMB. Sections show predominantlybenign liver parenchyma with portal triads and preserved hepatic plates. By immunostains, CK7 highlights the presence of bile ducts in the portal triads; while GATA3 and ER are predominantly negative. Additionally, reticulin shows preserved hepatic plates. No diagnostic features of malignancy or neoplasm are seen. Clinical/radiological correlation is recommended. If clinically indicated, procurement of additional material may be considered for further evaluation.Intradepartmental consultation: Dr. Sierra Eid has also reviewed part B of this case and concurs with the diagnosis.[id number], 83803, 65940, 81181 x 2, 55796Yhuaador of gallbladder without cholecystitis without obstruction. Liver mass.A. GallbladderB. Biopsy, liverA. Received fresh, labeled with the patient's name, MRN and "gallbladder"and consists of an intact gallbladder (9.2 x 3 x 2.8 cm) which has a clipped cystic duct. The serosais lavender-pink and smooth. A cystic duct lymph node is not present. The gallbladder is opened to re veal esteban-green viscous bile and multiple (greater than 20) bosselated yellow choleliths ranging 0.1-0.3 cm. The mucosa is esteban and trabeculated. The wall thickness is 0.1 cm. No gross lesions are identified. It Risk And Assurance Senior Manager sections are submitted.Ink code:Black: Cystic duct marginBlue: Hepatic bedSection codeA1: Cystic duct margin, en faceA2: Gallbladder wallB. Received fresh labelled with the patient's name, medical record number and "biopsy, liver" are 3 esteban soft tissue cores ranging 0.4-0.7 cm which are submitted in toto in B1.SHADIA Mcclellan PA ([facility])The interpretation of this case included the use of immunohistochemistry or special stains.Please see the immunohistochemistry results in the COMMENT section. Control Slides Examined: In-house known positive controls were evaluated along with the test tissue. These control slides run alongside of the patients sample show appropriate staining. Internal positive and negative controls when available are evaluated Immunohistochemistry technicaltesting was performed at [facility], Pathology Laboratory where it was developed and its performance characteristics were determined. It has not been cleared or approved by the U.S. Food and Drug Administration. The FDA has determined that such clearance or approval is not necessary. The test is used for clinical purposes. It should not be regarded as investigational or for research. This laboratory is certified under the Clinical Laboratory Improvement Amendments of 1988 (CLIA-88) as qualified to perform high complexity clinical laboratory testing.URINE [id number] 11:09:00 Test Item Value Reference Range Interpretation Comments Isolate 1 (test code = Lactobacillus species ISO1) CBC (INCLUDES AUTOMATED DIFFERENTIAL)*[id number] 12:25:00 Test Item Value Reference Range Interpretation Comments WBC (test code = WBC) 8.4 10\\S\\3/uL 4.5-11.0 RBC (test code = RBC) 2.86 10\\S\\6/uL 4.30-5.70 L HGB (test code = HBG) 7.6 g/dL 12.0-15.5 L HCT (test code = HCT) 24.5 % 35.0-44.0 LL MCV (test code = MCV) 85.7 fL 81.0-99.0 MCH (test code = MCH) 26.6 pg 27.0-31.0 L MCHC (test code = MCHC) 31.0 g/dL 32.0-36.0 L RDW (test code = RDW) 16.0 % 11.5-14.5 H PLT (test code = PLT) 265 10\\S\\3/uL 130-400 MPV (test code = MPV) 10.5 fL 9.4-12.4 NEUTROP # (test code = NE#) 4.3 10\\S\\3/uL 1.6-8.0 LYMPH # (test code = LY#) 3.1 10\\S\\3/uL 1.1-3.5 MONOCYTE # (test code = MO#) 0.9 10\\S\\3/uL 0.0-1.1 EOSINOPH # (test code = EO#) 0.0 10\\S\\3/uL 0.0-0.7 BASOPHIL # (test code = BA#) 0.0 10\\S\\3/uL 0.0-0.3 IG # (test code = IG#) 0.02 10\\S\\3/uL 0.00-0.06 NRBC # (test code = NRBC#) 0.00 10\\S\\3/uL 0.00-0.01 NEUTROPH % (test code = NE%) 51.1 % 35.0-73.0 LYMPH % (test code = LY%) 36.7 % 20.0-55.0 MONO % (test code = MO%) 11.1 % 2.5-10.0 H EOSINOPH % (test code = EO%) 0.4 % 0.0-5.0 BASOPHIL % (test code = BA%) 0.5 % 0.0-2.0 IG % (test code = IG%) 0.2 % 0.0-0.8 NRBC% (test code = NRBC%) 0.0 % 0.0-0.2 MANDIFF (test code = WMDIFF) NO NO RBC MORPH (test code = NORMAL WRBCMOR) URINALYSIS WITH MICRO *WW*2020-04-03 11:43:00 Test Item Value Reference Range Interpretation Comments COLOR (test code = COLU) YELLOW YELLOW CLARITY (test code = CLA) SLT HAZY CLEAR A GLUCOSE UR (test code = UA NEGATIVE NEGATIVE GLUCOSE) BILI UR (test code = BILE) NEGATIVE NEGATIVE KETONES UR (test code = OH) NEGATIVE NEGATIVE SP GRAVITY (test code = SPGR) 1.015 1.005-1.030 PH UR (test code = PH) 6.0 4.5-8.0 PROTEIN UR (test code = PU) NEGATIVE NEGATIVE UROBIL UR (test code = UROQ) 0.2 EU/dL 0.2-1.0 NITRITE UR (test code = NEGATIVE NEGATIVE NITRITE) BLOOD UR (test code = UA BLOOD) NEGATIVE NEGATIVE LEUK ES UR (test code = LEUK) 2+ NEGATIVE A WBC UR (test code = UWBC) 12 /HPF 0-5 H RBC UR (test code = URBC) 1 /HPF 0-2 EPITH UR (test code = UEPC) MODERATE /LPF FEW A BACTERIA UR (test code = UBACT) FEW /HPF NONE A CAST UR (test code = CAST) /LPF NONE CRYSTAL UR (test code = CRYU) / LPF NONE MUCUS UR (test code = MUC) / HPF NONE AMORPH UR (test code = AARON) / HPF NONE TRICH UR (test code = UTRICH) /HPF NONE YEAST UR (test code = UY) /HPF NONE SPERM UR (test code = USPERM) /HPF NONE COMPREHENSIVE METABOLIC NEELY *WW*2020-04-03 10:12:00 Test Item Value Reference Range Interpretation Comments GLUCOSE (test code = 87 mg/dL 75-100 06D) SODIUM (test code = 136 mmol/L 136-145 01A) POTASSIUM (test code = 4.9 mmol/L 3.6-5.1 01B) CHLORIDE (test code = 105 mmol/L 98-107 04A) CO2 (test code = 02A) 24 mmol/L 22-32 ANION GAP (test code = 11.9 mmol/L ANG) BUN (test code = 05D) 14 mg/dL 7-18 CREATININE (test code 0.8 mg/dL 0.4-1.1 = 03E) GFR (test code = GFR) 87 mL/min/1.73m\\S\\2 >=90 L GFR 100 mL/min/1.73m\\S\\2 >=90 (test code = GFRAA) EGFR (test code = eGFR BY CKD-EPI EGFR) CALCULATION IS NOT RECOMMENDED FOR PATIENTS UNDER 18 YEARS OF AGE. BUN/CREA (test code = 17 12-20 BCR) CALCIUM (test code = 8.1 mg/dL 8.3-9.5 L 09D) BILI TOTAL (test code 0.7 mg/dL 0.2-1.0 = 11A) PROTEIN (test code = 7.0 g/dL 6.4-8.2 07D) ALBUMIN (test code = 2.5 g/dL 3.5-4.8 L 08D) GLOBULIN (test code = 4.5 g/dL 1.5-3.8 H GLB) ALB/GLOB (test code = 0.5 1.0-2.6 L AGRR) ALK PHOS (test code = 69 IU/L 42-121 35A) AST (test code = 30A) 64 IU/L <=42 H ALT (test code = 31A) 50 IU/L <=78 AMYLASE *WW*2020-04-03 10:12:00 Test Item Value Reference Range Interpretation Comments AMYLASE (test code = 10A) 53 U/L 28-100 LIPASE SERUM WW2020-04-03 10:12:00 Test Item Value Reference Range Interpretation Comments LIPASE (test code = 60A) 85 IU/L 73-393 SERUM MONOCLONAL *WW*2020-04-03 10:02:00 Test Item Value Reference Range Interpretation Comments PREG SRM (test code = PGS) NEGATIVE NEGATIVE POCT-GLUCOSE [id number] 08:37:00 Test Item Value Reference Range Interpretation Comments POC-GLUCOSE METER 83 mg/dL 70-110 : TESTED A T [facility] (BEAKER) (test code = MARGARITALEONARD RYAN OR, 1538) [id number]: Manager Ct/Techni lillian ID = [id number] for WATS ON, ZUHAIR URINE [id number] 10:36:00 Test Item Value Reference Range Interpretation Comments Culture Observations THREE OR MORE SPECIES (test code = COB1) OF BACTERIA ISOLATED. PROBABLE CONTAMINATION. Culture Observations IDENTIFICATION AND (test code = COB17) SUSCEPTIBILITY NOT INDICATED. RECOLLECTION RECOMMENDED AMYLASE AND LIPASE *WW*2020-03-22 00:24:00 Test Item Value Reference Range Interpretation Comments AMYLASE (test code = 10A) 105 U/L 28-100 H LIPASE (test code = 60A) 264 IU/L 73-393 SERUM MONOCLONAL *WW*2020-03-21 16:12:00 Test Item Value Reference Range Interpretation Comments PREG SRM (test code = PGS) NEGATIVE NEGATIVE COMPREHENSIVE METABOLIC NEELY *WW*2020-03-21 16:12:00 Test Item Value Reference Range Interpretation Comments GLUCOSE (test code = 92 mg/dL 75-100 06D) SODIUM (test code = 140 mmol/L 136-145 01A) POTASSIUM (test code = 3.5 mmol/L 3.6-5.1 L 01B) CHLORIDE (test code = 107 mmol/L 98-107 04A) CO2 (test code = 02A) 27 mmol/L 22-32 ANION GAP (test code = 9.5 mmol/L ANG) BUN (test code = 05D) 15 mg/dL 7-18 CREATININE (test code 0.8 mg/dL 0.4-1.1 = 03E) GFR (test code = GFR) 84 mL/min/1.73m\\S\\2 >=90 L GFR 98 mL/min/1.73m\\S\\2 >=90 (test code = GFRAA) EGFR (test code = eGFR BY CKD-EPI EGFR) CALCULATION IS NOT RECOMMENDED FOR PATIENTS UNDER 18 YEARS OF AGE. BUN/CREA (test code = 18 12-20 BCR) CALCIUM (test code = 8.2 mg/dL 8.3-9.5 L 09D) BILI TOTAL (test code 0.5 mg/dL 0.2-1.0 = 11A) PROTEIN (test code = 7.3 g/dL 6.4-8.2 07D) ALBUMIN (test code = 2.6 g/dL 3.5-4.8 L 08D) GLOBULIN (test code = 4.7 g/dL 1.5-3.8 H GLB) ALB/GLOB (test code = 0.5 1.0-2.6 L AGRR) ALK PHOS (test code = 89 IU/L 42-121 35A) AST (test code = 30A) 63 IU/L <=42 H ALT (test code = 31A) 68 IU/L <=78 AMYLASE AND LIPASE *WW*2020-03-21 16:12:00 Test Item Value Reference Range Interpretation Comments AMYLASE (test code = 10A) 116 U/L 28-100 H LIPASE (test code = 60A) 391 IU/L 73-393 URINALYSIS WITH MICRO *WW*2020-03-21 16:10:00 Test Item Value Reference Range Interpretation Comments COLOR (test code = COLU) YELLOW YELLOW CLARITY (test code = CLA) HAZY CLEAR A GLUCOSE UR (test code = UA NEGATIVE NEGATIVE GLUCOSE) BILI UR (test code = BILE) NEGATIVE NEGATIVE KETONES UR (test code = OH) NEGATIVE NEGATIVE SP GRAVITY (test code = SPGR) 1.010 1.005-1.030 PH UR (test code = PH) 6.5 4.5-8.0 PROTEIN UR (test code = PU) NEGATIVE NEGATIVE UROBIL UR (test code = UROQ) 0.2 EU/dL 0.2-1.0 NITRITE UR (test code = NITRITE) NEGATIVE NEGATIVE BLOOD UR (test code = UA BLOOD) TRACE-INTACT NEGATIVE A LEUK ES UR (test code = LEUK) 3+ NEGATIVE A WBC UR (test code = UWBC) 12 /HPF 0-5 H RBC UR (test code = URBC) 3 /HPF 0-2 H EPITH UR (test code = UEPC) FEW /LPF FEW BACTERIA UR (test code = UBACT) FEW /HPF NONE A CAST UR (test code = CAST) /LPF NONE CRYSTAL UR (test code = CRYU) / LPF NONE MUCUS UR (test code = MUC) / HPF NONE AMORPH UR (test code = AARON) / HPF NONE TRICH UR (test code = UTRICH) /HPF NONE YEAST UR (test code = UY) /HPF NONE SPERM UR (test code = USPERM) /HPF NONE CBC (INCLUDES AUTOMATED DIFFERENTIAL)*[id number] 16:05:00 Test Item Value Reference Range Interpretation Comments WBC (test code = WBC) 7.8 10\\S\\3/uL 4.5-11.0 RBC (test code = RBC) 3.85 10\\S\\6/uL 4.30-5.70 L HGB (test code = HBG) 10.4 g/dL 12.0-15.5 L HCT (test code = HCT) 33.0 % 35.0-44.0 L MCV (test code = MCV) 85.7 fL 81.0-99.0 MCH (test code = MCH) 27.0 pg 27.0-31.0 MCHC (test code = MCHC) 31.5 g/dL 32.0-36.0 L RDW (test code = RDW) 14.4 % 11.5-14.5 PLT (test code = PLT) 437 10\\S\\3/uL 130-400 H MPV (test code = MPV) 10.0 fL 9.4-12.4 NEUTROP # (test code = NE#) 4.8 10\\S\\3/uL 1.6-8.0 LYMPH # (test code = LY#) 2.1 10\\S\\3/uL 1.1-3.5 MONOCYTE # (test code = MO#) 0.8 10\\S\\3/uL 0.0-1.1 EOSINOPH # (test code = EO#) 0.1 10\\S\\3/uL 0.0-0.7 BASOPHIL # (test code = BA#) 0.1 10\\S\\3/uL 0.0-0.3 IG # (test code = IG#) 0.02 10\\S\\3/uL 0.00-0.06 NRBC # (test code = NRBC#) 0.00 10\\S\\3/uL 0.00-0.01 NEUTROPH % (test code = NE%) 60.9 % 35.0-73.0 LYMPH % (test code = LY%) 26.4 % 20.0-55.0 MONO % (test code = MO%) 9.9 % 2.5-10.0 EOSINOPH % (test code = EO%) 1.3 % 0.0-5.0 BASOPHIL % (test code = BA%) 1.2 % 0.0-2.0 IG % (test code = IG%) 0.3 % 0.0-0.8 NRBC% (test code = NRBC%) 0.0 % 0.0-0.2 MANDIFF (test code = WMDIFF) NO NO RBC MORPH (test code = NORMAL WRBCMOR) URINALYSIS *WW*2020-03-20 21:25:00 Test Item Value Reference Range Interpretation Comments COLOR (test code = COLU) YELLOW YELLOW CLARITY (test code = CLA) CLEAR CLEAR GLUCOSE UR (test code = UA GLUCOSE) NEGATIVE NEGATIVE BILI UR (test code = BILE) NEGATIVE NEGATIVE KETONES UR (test code = OH) NEGATIVE NEGATIVE SP GRAVITY (test code = SPGR) >=1.030 1.005-1.030 PH UR (test code = PH) 5.5 4.5-8.0 PROTEIN UR (test code = PU) NEGATIVE NEGATIVE UROBIL UR (test code = UROQ) 0.2 EU/dL 0.2-1.0 NITRITE UR (test code = NITRITE) NEGATIVE NEGATIVE BLOOD UR (test code = UA BLOOD) NEGATIVE NEGATIVE LEUK ES UR (test code = LEUK) NEGATIVE NEGATIVE AUAM (test code = WAUAM) NO NO URINE [id number] 11:34:00 Test Item Value Reference Range Interpretation Comments Culture Observations THREE OR MORE SPECIES (test code = COB1) OF BACTERIA ISOLATED. PROBABLE CONTAMINATION. Culture Observations IDENTIFICATION AND (test code = COB17) SUSCEPTIBILITY NOT INDICATED. RECOLLECTION RECOMMENDED CBC WITH MANUAL DIFF *WW*2020-02-11 11:03:00 Test Item Value Reference Range Interpretation Comments WBC (test code = WBC) 9.2 10\\S\\3/uL 4.5-11.0 RBC (test code = RBC) 3.57 10\\S\\6/uL 4.30-5.70 L HGB (test code = HBG) 10.4 g/dL 12.0-15.5 L HCT (test code = HCT) 32.1 % 35.0-44.0 L MCV (test code = MCV) 89.9 fL 81.0-99.0 MCH (test code = MCH) 29.1 pg 27.0-31.0 MCHC (test code = MCHC) 32.4 g/dL 32.0-36.0 RDW (test code = RDW) 12.8 % 11.5-14.5 PLT (test code = PLT) 233 10\\S\\3/uL 130-400 MPV (test code = MPV) 10.7 fL 9.4-12.4 NEUTROP # (test code = 6.8 10\\S\\3/uL 1.6-8.0 NE#) LYMPH # (test code = 1.4 10\\S\\3/uL 1.1-3.5 LY#) MONOCYTE # (test code = 0.8 10\\S\\3/uL 0.0-1.1 MO#) EOSINOPH # (test code = 0.1 10\\S\\3/uL 0.0-0.7 EO#) BASOPHIL # (test code = 0.1 10\\S\\3/uL 0.0-0.3 BA#) IG # (test code = IG#) 0.03 10\\S\\3/uL 0.00-0.06 NRBC # (test code = 0.00 10\\S\\3/uL 0.00-0.01 NRBC#) NEUTROPH % (test code = 73.7 % 35.0-73.0 H NE%) LYMPH % (test code = 15.5 % 20.0-55.0 L LY%) MONO % (test code = 8.4 % 2.5-10.0 MO%) EOSINOPH % (test code = 1.2 % 0.0-5.0 EO%) BASOPHIL % (test code = 0.9 % 0.0-2.0 BA%) IG % (test code = IG%) 0.3 % 0.0-0.8 NRBC% (test code = 0.0 % 0.0-0.2 NRBC%) MAN DIFF (test code = MANUAL HMDIFF) DIFFERENTIAL SEG (test code = SEG) 66 % 42-75 BAND (test code = BAND) 0 % 0-8 LYMPH (test code = 30 % 20-51 LYMPH) MONO (test code = MONO) 4 % 3-11 EOS (test code = EOS) 0 % 0-10 BASO (test code = BASO) 0 % 0-2 RBC MORPH (test code = NORMAL NORMAL RBCMORN) PLT EST (test code = ADEQUATE ADEQUATE PLTEST) PLT MORPH (test code = NORMAL (1.5-3 um) NORMAL PLTMOR) URINALYSIS WITH MICRO *WW*2020-02-11 10:26:00 Test Item Value Reference Range Interpretation Comments COLOR (test code = COLU) YELLOW YELLOW CLARITY (test code = CLA) SLT HAZY CLEAR A GLUCOSE UR (test code = UA NEGATIVE NEGATIVE GLUCOSE) BILI UR (test code = BILE) NEGATIVE NEGATIVE KETONES UR (test code = OH) NEGATIVE NEGATIVE SP GRAVITY (test code = SPGR) 1.025 1.005-1.030 PH UR (test code = PH) 6.0 4.5-8.0 PROTEIN UR (test code = PU) NEGATIVE NEGATIVE UROBIL UR (test code = UROQ) 0.2 EU/dL 0.2-1.0 NITRITE UR (test code = NEGATIVE NEGATIVE NITRITE) BLOOD UR (test code = UA BLOOD) TRACE-INTACT NEGATIVE A LEUK ES UR (test code = LEUK) 2+ NEGATIVE A WBC UR (test code = UWBC) 25 /HPF 0-5 H RBC UR (test code = URBC) 3 /HPF 0-2 H EPITH UR (test code = UEPC) MODERATE /LPF FEW A BACTERIA UR (test code = UBACT) FEW /HPF NONE A CAST UR (test code = CAST) /LPF NONE CRYSTAL UR (test code = CRYU) / LPF NONE MUCUS UR (test code = MUC) / HPF NONE AMORPH UR (test code = AARON) / HPF NONE TRICH UR (test code = UTRICH) /HPF NONE YEAST UR (test code = UY) /HPF NONE SPERM UR (test code = USPERM) /HPF NONE AMYLASE AND LIPASE *WW*2020-02-11 10:24:00 Test Item Value Reference Range Interpretation Comments AMYLASE (test code = 10A) 94 U/L 28-100 LIPASE (test code = 60A) 248 IU/L 73-393 COMPREHENSIVE METABOLIC NEELY *WW*2020-02-11 10:24:00 Test Item Value Reference Range Interpretation Comments GLUCOSE (test code = 06D) 133 mg/dL 75-100 H SODIUM (test code = 01A) 139 mmol/L 136-145 POTASSIUM (test code = 01B) 4.1 mmol/L 3.6-5.1 CHLORIDE (test code = 04A) 105 mmol/L 98-107 CO2 (test code = 02A) 24 mmol/L 22-32 ANION GAP (test code = ANG) 14.1 mmol/L BUN (test code = 05D) 17 mg/dL 7-18 CREATININE (test code = 03E) 1.0 mg/dL 0.4-1.1 BUN/CREA (test code = BCR) 18 12-20 CALCIUM (test code = 09D) 8.6 mg/dL 8.3-9.5 BILI TOTAL (test code = 11A) 0.2 mg/dL 0.2-1.0 PROTEIN (test code = 07D) 6.9 g/dL 6.4-8.2 ALBUMIN (test code = 08D) 2.6 g/dL 3.5-4.8 L GLOBULIN (test code = GLB) 4.4 g/dL 1.5-3.8 H ALB/GLOB (test code = AGRR) 0.6 1.0-2.6 L ALK PHOS (test code = 35A) 66 IU/L 42-121 AST (test code = 30A) 24 IU/L <=42 ALT (test code = 31A) 23 IU/L <=78 SERUM MONOCLONAL 2020-02-11 10:17:00 Test Item Value Reference Range Interpretation Comments PREG SRM (test code = PGS) NEGATIVE NEGATIVE PRO TIME AND PTT 2019-12-16 00:50:00 Test Item Value Reference Range Interpretation Comments PT (test code = 10.8 s 9.8-13.6 TT) INR (test code = 0.9 INR) INRH (test code = SUGGESTED INRH) THERAPEUTIC RANGE FOR INR: 2.5 - 3.5 For Patients with Prosthetic Valves or Patients with recurrent Thromboembolic Events 2.0 - 3.0 For Most Other Applications PTT (test code = 17.8 s 20.2-38.0 L PTT) PTTH (test code = To monitor the PTTH) effectiveness of heparin, we offer the Anti-Xa (Heparin Assay). It can be used for either unfractionated or LMW Heparin. Order Code is ANTI-XA SERUM MONOCLONAL 2019-12-16 00:40:00 Test Item Value Reference Range Interpretation Comments PREG SRM (test code = PGS) NEGATIVE NEGATIVE CBC (INCLUDES AUTOMATED DIFFERENTIAL)*[id number] 00:37:00 Test Item Value Reference Range Interpretation Comments WBC (test code = WBC) 7.0 10\\S\\3/uL 4.5-11.0 RBC (test code = RBC) 3.60 10\\S\\6/uL 4.30-5.70 L HGB (test code = HBG) 11.2 g/dL 12.0-15.5 L HCT (test code = HCT) 34.2 % 35.0-44.0 L MCV (test code = MCV) 95.0 fL 81.0-99.0 MCH (test code = MCH) 31.1 pg 27.0-31.0 H MCHC (test code = MCHC) 32.7 g/dL 32.0-36.0 RDW (test code = RDW) 13.2 % 11.5-14.5 PLT (test code = PLT) 304 10\\S\\3/uL 130-400 MPV (test code = MPV) 10.4 fL 9.4-12.4 NEUTROP # (test code = NE#) 3.6 10\\S\\3/uL 1.6-8.0 LYMPH # (test code = LY#) 2.5 10\\S\\3/uL 1.1-3.5 MONOCYTE # (test code = MO#) 0.7 10\\S\\3/uL 0.0-1.1 EOSINOPH # (test code = EO#) 0.2 10\\S\\3/uL 0.0-0.7 BASOPHIL # (test code = BA#) 0.1 10\\S\\3/uL 0.0-0.3 IG # (test code = IG#) 0.01 10\\S\\3/uL 0.00-0.06 NRBC # (test code = NRBC#) 0.00 10\\S\\3/uL 0.00-0.01 NEUTROPH % (test code = NE%) 50.6 % 35.0-73.0 LYMPH % (test code = LY%) 35.8 % 20.0-55.0 MONO % (test code = MO%) 10.0 % 2.5-10.0 EOSINOPH % (test code = EO%) 2.4 % 0.0-5.0 BASOPHIL % (test code = BA%) 1.1 % 0.0-2.0 IG % (test code = IG%) 0.1 % 0.0-0.8 NRBC% (test code = NRBC%) 0.0 % 0.0-0.2 MANDIFF (test code = WMDIFF) NO NO RBC MORPH (test code = NORMAL WRBCMOR) ALPHA -1 FETOPROTEIN *WW*2019-11-30 18:53:00 Test Item Value Reference Range Interpretation Comments ALPHA FETOPROTEIN 2.2 ng/mL Reference Range: <6.1The TUMOR MARKER use of AFP as a tumor marker (test code = in fema les is not [id number]) recommended.Thi s test was performed using the Gio Coulterchemilum inescent method. Values obtained fromdifferent a ssay methods cannot be usedinterchange ably. AFP levels, regardl ess ofvalue, should not be i nterpreted as absoluteevidenc e of the presence or abs ence of disease.TEST PE RFORMED AT:[facility] [id number] [facility] [place] [id number] LEACH MD CA 125 *WW*2019-11-30 15:58:00 Test Item Value Reference Range Interpretation Comments CA 125 (test 22 U/mL <35 This test was p erformed using code = the Gio [id number]) CoulterChemilum inescent method. Values obtained fromdifferent assay methods c annot be usedinterchange ably. CA 125 levels, regardl ess ofvalue, should not be i nterpreted as absoluteevidenc e of the presence or absence of d isease.TEST PERFORMED AT:[facility] [id number].[place] [id number] LEACH MD [id number] 14:21:00 Test Item Value Reference Range Interpretation Comments CA 27.29 (test 39 U/mL <38 H This test was performed using code = the Photocollect iluminescent [id number]) method. Values obtained fromdifferent a ssay methods cannot be usedi nterchangeably. CA 27.29 levels , regardless ofvalue, should not be interpreted as absoluteevidence of the presence or absence of disease.TEST PE RFORMED AT:[facility] [id number] [facility].[place] [id number] LEACH MD CARCINOEMBRYONIC ANIGEN *WW*2019-11-29 07:41:00 Test Item Value Reference Range Interpretation Comments CEA (test code = CEA) 1.0 ng/mL 0.0-3.0 COMPREHENSIVE METABOLIC NEELY *WW*2019-11-29 06:06:00 Test Item Value Reference Range Interpretation Comments GLUCOSE (test code = 06D) 83 mg/dL 75-100 SODIUM (test code = 01A) 139 mmol/L 136-145 POTASSIUM (test code = 01B) 3.8 mmol/L 3.6-5.1 CHLORIDE (test code = 04A) 107 mmol/L 98-107 CO2 (test code = 02A) 24 mmol/L 22-32 ANION GAP (test code = ANG) 11.8 mmol/L BUN (test code = 05D) 13 mg/dL 7-18 CREATININE (test code = 03E) 0.8 mg/dL 0.4-1.1 BUN/CREA (test code = BCR) 15 12-20 CALCIUM (test code = 09D) 8.2 mg/dL 8.3-9.5 L BILI TOTAL (test code = 11A) 0.8 mg/dL 0.2-1.0 PROTEIN (test code = 07D) 6.5 g/dL 6.4-8.2 ALBUMIN (test code = 08D) 2.4 g/dL 3.5-4.8 L GLOBULIN (test code = GLB) 4.0 g/dL 1.5-3.8 H ALB/GLOB (test code = AGRR) 0.6 1.0-2.6 L ALK PHOS (test code = 35A) 111 IU/L 42-121 AST (test code = 30A) 62 IU/L <=42 H ALT (test code = 31A) 127 IU/L <=78 H MAGNESIUM WW2019-11-29 06:06:00 Test Item Value Reference Range Interpretation Comments MAGNESIUM (test code = 48A) 1.8 mg/dL 1.8-2.4 PHOSPHORUS (P04) 2019-11-29 06:06:00 Test Item Value Reference Range Interpretation Comments PHOSPHORUS (test code = 43D) 3.5 mg/dL 2.7-4.6 CBC (INCLUDES AUTOMATED DIFFERENTIAL)*[id number] 05:49:00 Test Item Value Reference Range Interpretation Comments WBC (test code = WBC) 6.9 10\\S\\3/uL 4.5-11.0 RBC (test code = RBC) 3.29 10\\S\\6/uL 4.30-5.70 L HGB (test code = HBG) 10.4 g/dL 12.0-15.5 L HCT (test code = HCT) 31.5 % 35.0-44.0 L MCV (test code = MCV) 95.7 fL 81.0-99.0 MCH (test code = MCH) 31.6 pg 27.0-31.0 H MCHC (test code = MCHC) 33.0 g/dL 32.0-36.0 RDW (test code = RDW) 13.7 % 11.5-14.5 PLT (test code = PLT) 314 10\\S\\3/uL 130-400 MPV (test code = MPV) 10.8 fL 9.4-12.4 NEUTROP # (test code = NE#) 3.5 10\\S\\3/uL 1.6-8.0 LYMPH # (test code = LY#) 2.4 10\\S\\3/uL 1.1-3.5 MONOCYTE # (test code = MO#) 0.7 10\\S\\3/uL 0.0-1.1 EOSINOPH # (test code = EO#) 0.1 10\\S\\3/uL 0.0-0.7 BASOPHIL # (test code = BA#) 0.1 10\\S\\3/uL 0.0-0.3 IG # (test code = IG#) 0.01 10\\S\\3/uL 0.00-0.06 NRBC # (test code = NRBC#) 0.00 10\\S\\3/uL 0.00-0.01 NEUTROPH % (test code = NE%) 51.3 % 35.0-73.0 LYMPH % (test code = LY%) 35.0 % 20.0-55.0 MONO % (test code = MO%) 10.3 % 2.5-10.0 H EOSINOPH % (test code = EO%) 2.0 % 0.0-5.0 BASOPHIL % (test code = BA%) 1.3 % 0.0-2.0 IG % (test code = IG%) 0.1 % 0.0-0.8 NRBC% (test code = NRBC%) 0.0 % 0.0-0.2 MANDIFF (test code = WMDIFF) NO NO RBC MORPH (test code = NORMAL WRBCMOR) URINALYSIS WITH MICRO *WW*2019-11-27 22:27:00 Test Item Value Reference Range Interpretation Comments COLOR (test code = COLU) YELLOW YELLOW CLARITY (test code = CLA) CLEAR CLEAR GLUCOSE UR (test code = UA NEGATIVE NEGATIVE GLUCOSE) BILI UR (test code = BILE) NEGATIVE NEGATIVE KETONES UR (test code = OH) TRACE NEGATIVE A SP GRAVITY (test code = SPGR) 1.020 1.005-1.030 PH UR (test code = PH) 7.0 4.5-8.0 PROTEIN UR (test code = PU) NEGATIVE NEGATIVE UROBIL UR (test code = UROQ) 1.0 EU/dL 0.2-1.0 NITRITE UR (test code = NITRITE) NEGATIVE NEGATIVE BLOOD UR (test code = UA BLOOD) TRACE-INTACT NEGATIVE A LEUK ES UR (test code = LEUK) NEGATIVE NEGATIVE WBC UR (test code = UWBC) 0 /HPF 0-5 RBC UR (test code = URBC) 2 /HPF 0-2 EPITH UR (test code = UEPC) FEW /LPF FEW BACTERIA UR (test code = UBACT) NONE /HPF NONE CAST UR (test code = CAST) /LPF NONE CRYSTAL UR (test code = CRYU) / LPF NONE MUCUS UR (test code = MUC) / HPF NONE AMORPH UR (test code = AARON) / HPF NONE TRICH UR (test code = UTRICH) /HPF NONE YEAST UR (test code = UY) /HPF NONE SPERM UR (test code = USPERM) /HPF NONE URINE MONOCLONAL *WW*2019-11-27 22:22:00 Test Item Value Reference Range Interpretation Comments PREG UR (test code = PGU) NEGATIVE NEGATIVE COMPREHENSIVE METABOLIC NEELY *WW*2019-11-27 22:07:00 Test Item Value Reference Range Interpretation Comments GLUCOSE (test code = 06D) 101 mg/dL 75-100 H SODIUM (test code = 01A) 138 mmol/L 136-145 POTASSIUM (test code = 01B) 4.1 mmol/L 3.6-5.1 CHLORIDE (test code = 04A) 105 mmol/L 98-107 CO2 (test code = 02A) 25 mmol/L 22-32 ANION GAP (test code = ANG) 12.1 mmol/L BUN (test code = 05D) 14 mg/dL 7-18 CREATININE (test code = 03E) 0.8 mg/dL 0.4-1.1 BUN/CREA (test code = BCR) 17 12-20 CALCIUM (test code = 09D) 8.4 mg/dL 8.3-9.5 BILI TOTAL (test code = 11A) 0.4 mg/dL 0.2-1.0 PROTEIN (test code = 07D) 6.8 g/dL 6.4-8.2 ALBUMIN (test code = 08D) 2.6 g/dL 3.5-4.8 L GLOBULIN (test code = GLB) 4.3 g/dL 1.5-3.8 H ALB/GLOB (test code = AGRR) 0.6 1.0-2.6 L ALK PHOS (test code = 35A) 120 IU/L 42-121 AST (test code = 30A) 110 IU/L <=42 H ALT (test code = 31A) 126 IU/L <=78 H CBC (INCLUDES AUTOMATED DIFFERENTIAL)*[id number] 21:49:00 Test Item Value Reference Range Interpretation Comments WBC (test code = WBC) 14.6 10\\S\\3/uL 4.5-11.0 H RBC (test code = RBC) 3.48 10\\S\\6/uL 4.30-5.70 L HGB (test code = HBG) 10.9 g/dL 12.0-15.5 L HCT (test code = HCT) 33.3 % 35.0-44.0 L MCV (test code = MCV) 95.7 fL 81.0-99.0 MCH (test code = MCH) 31.3 pg 27.0-31.0 H MCHC (test code = MCHC) 32.7 g/dL 32.0-36.0 RDW (test code = RDW) 13.5 % 11.5-14.5 PLT (test code = PLT) 312 10\\S\\3/uL 130-400 MPV (test code = MPV) 10.6 fL 9.4-12.4 NEUTROP # (test code = NE#) 10.9 10\\S\\3/uL 1.6-8.0 H LYMPH # (test code = LY#) 2.4 10\\S\\3/uL 1.1-3.5 MONOCYTE # (test code = MO#) 1.0 10\\S\\3/uL 0.0-1.1 EOSINOPH # (test code = EO#) 0.1 10\\S\\3/uL 0.0-0.7 BASOPHIL # (test code = BA#) 0.1 10\\S\\3/uL 0.0-0.3 IG # (test code = IG#) 0.05 10\\S\\3/uL 0.00-0.06 NRBC # (test code = NRBC#) 0.00 10\\S\\3/uL 0.00-0.01 NEUTROPH % (test code = NE%) 74.9 % 35.0-73.0 H LYMPH % (test code = LY%) 16.2 % 20.0-55.0 L MONO % (test code = MO%) 7.1 % 2.5-10.0 EOSINOPH % (test code = EO%) 0.9 % 0.0-5.0 BASOPHIL % (test code = BA%) 0.6 % 0.0-2.0 IG % (test code = IG%) 0.3 % 0.0-0.8 NRBC% (test code = NRBC%) 0.0 % 0.0-0.2 MANDIFF (test code = WMDIFF) NO NO RBC MORPH (test code = NORMAL WRBCMOR) URINE [id number] 09:32:00 Test Item Value Reference Range Interpretation Comments Culture Observations (test NO GROWTH (<1,000 code = COB1) CFU/ML) URINALYSIS WITH MICRO *WW*2019-11-18 15:53:00 Test Item Value Reference Range Interpretation Comments COLOR (test code = COLU) YELLOW YELLOW CLARITY (test code = CLA) HAZY CLEAR A GLUCOSE UR (test code = UA GLUCOSE) NEGATIVE NEGATIVE BILI UR (test code = BILE) NEGATIVE NEGATIVE KETONES UR (test code = OH) NEGATIVE NEGATIVE SP GRAVITY (test code = SPGR) 1.015 1.005-1.030 PH UR (test code = PH) 8.0 4.5-8.0 PROTEIN UR (test code = PU) NEGATIVE NEGATIVE UROBIL UR (test code = UROQ) 0.2 EU/dL 0.2-1.0 NITRITE UR (test code = NITRITE) NEGATIVE NEGATIVE BLOOD UR (test code = UA BLOOD) NEGATIVE NEGATIVE LEUK ES UR (test code = LEUK) NEGATIVE NEGATIVE WBC UR (test code = UWBC) 5 /HPF 0-5 RBC UR (test code = URBC) 2 /HPF 0-2 EPITH UR (test code = UEPC) FEW /LPF FEW BACTERIA UR (test code = UBACT) FEW /HPF NONE A CAST UR (test code = CAST) /LPF NONE CRYSTAL UR (test code = CRYU) / LPF NONE MUCUS UR (test code = MUC) / HPF NONE AMORPH UR (test code = AARON) FEW / HPF NONE A TRICH UR (test code = UTRICH) /HPF NONE YEAST UR (test code = UY) /HPF NONE SPERM UR (test code = USPERM) /HPF NONE AMYLASE AND LIPASE *WW*2019-11-18 13:26:00 Test Item Value Reference Range Interpretation Comments AMYLASE (test code = 10A) 100 U/L 28-100 LIPASE (test code = 60A) 287 IU/L 73-393 COMPREHENSIVE METABOLIC NEELY *WW*2019-11-18 13:26:00 Test Item Value Reference Range Interpretation Comments GLUCOSE (test code = 06D) 111 mg/dL 75-100 H SODIUM (test code = 01A) 137 mmol/L 136-145 POTASSIUM (test code = 01B) 3.9 mmol/L 3.6-5.1 CHLORIDE (test code = 04A) 103 mmol/L 98-107 CO2 (test code = 02A) 25 mmol/L 22-32 ANION GAP (test code = ANG) 12.9 mmol/L BUN (test code = 05D) 22 mg/dL 7-18 H CREATININE (test code = 03E) 1.0 mg/dL 0.4-1.1 BUN/CREA (test code = BCR) 22 12-20 H CALCIUM (test code = 09D) 8.7 mg/dL 8.3-9.5 BILI TOTAL (test code = 11A) 0.6 mg/dL 0.2-1.0 PROTEIN (test code = 07D) 7.6 g/dL 6.4-8.2 ALBUMIN (test code = 08D) 2.9 g/dL 3.5-4.8 L GLOBULIN (test code = GLB) 4.6 g/dL 1.5-3.8 H ALB/GLOB (test code = AGRR) 0.6 1.0-2.6 L ALK PHOS (test code = 35A) 111 IU/L 42-121 AST (test code = 30A) 138 IU/L <=42 H ALT (test code = 31A) 89 IU/L <=78 H SERUM MONOCLONAL *WW*2019-11-18 13:17:00 Test Item Value Reference Range Interpretation Comments PREG SRM (test code = PGS) NEGATIVE NEGATIVE CBC (INCLUDES AUTOMATED DIFFERENTIAL)*[id number] 13:16:00 Test Item Value Reference Range Interpretation Comments WBC (test code = WBC) 10.9 10\\S\\3/uL 4.5-11.0 RBC (test code = RBC) 3.77 10\\S\\6/uL 4.30-5.70 L HGB (test code = HBG) 11.7 g/dL 12.0-15.5 L HCT (test code = HCT) 35.8 % 35.0-44.0 MCV (test code = MCV) 95.0 fL 81.0-99.0 MCH (test code = MCH) 31.0 pg 27.0-31.0 MCHC (test code = MCHC) 32.7 g/dL 32.0-36.0 RDW (test code = RDW) 12.9 % 11.5-14.5 PLT (test code = PLT) 310 10\\S\\3/uL 130-400 MPV (test code = MPV) 11.2 fL 9.4-12.4 NEUTROP # (test code = NE#) 8.2 10\\S\\3/uL 1.6-8.0 H LYMPH # (test code = LY#) 1.6 10\\S\\3/uL 1.1-3.5 MONOCYTE # (test code = MO#) 1.0 10\\S\\3/uL 0.0-1.1 EOSINOPH # (test code = EO#) 0.1 10\\S\\3/uL 0.0-0.7 BASOPHIL # (test code = BA#) 0.1 10\\S\\3/uL 0.0-0.3 IG # (test code = IG#) 0.02 10\\S\\3/uL 0.00-0.06 NRBC # (test code = NRBC#) 0.00 10\\S\\3/uL 0.00-0.01 NEUTROPH % (test code = NE%) 75.0 % 35.0-73.0 H LYMPH % (test code = LY%) 14.8 % 20.0-55.0 L MONO % (test code = MO%) 8.7 % 2.5-10.0 EOSINOPH % (test code = EO%) 0.5 % 0.0-5.0 BASOPHIL % (test code = BA%) 0.8 % 0.0-2.0 IG % (test code = IG%) 0.2 % 0.0-0.8 NRBC% (test code = NRBC%) 0.0 % 0.0-0.2 MANDIFF (test code = WMDIFF) NO NO RBC MORPH (test code = NORMAL WRBCMOR) URINALYSIS 2019-11-07 03:40:00 Test Item Value Reference Range Interpretation Comments COLOR (test code = COLU) YELLOW YELLOW CLARITY (test code = CLA) CLEAR CLEAR GLUCOSE UR (test code = UA GLUCOSE) NEGATIVE NEGATIVE BILI UR (test code = BILE) NEGATIVE NEGATIVE KETONES UR (test code = OH) NEGATIVE NEGATIVE SP GRAVITY (test code = SPGR) 1.015 1.005-1.030 PH UR (test code = PH) 8.0 4.5-8.0 PROTEIN UR (test code = PU) NEGATIVE NEGATIVE UROBIL UR (test code = UROQ) 0.2 EU/dL 0.2-1.0 NITRITE UR (test code = NITRITE) NEGATIVE NEGATIVE BLOOD UR (test code = UA BLOOD) NEGATIVE NEGATIVE LEUK ES UR (test code = LEUK) NEGATIVE NEGATIVE AUAM (test code = WAUAM) NO NO U/S GALLBLADDER2019-10-24 01:33:13HISTORY: Upper abdominal painCOMPARISON: NoneFINDINGS: Several small gravel-like stones are demonstrated within the gallbladder. Nosignificant gallbladder wall thickening.The common bile duct is upper limits of normal measuring 6 mm.There is 3.7 cm echogenic area in the central liver corresponding withlow-density lesion on prior CT. No other focal liver lesions identified.Doppler interrogation of the portal vein demonstrates normal flow.The visualized right kidney demonstrates no significant abnor malities. The pancrease is partially obscured without significant abnormality.IMPRESSION:1. Multiple small gallstones demonstrated within the gallbladder.2. Echogenic lesion in the central liver as seen on prior CT and priorultrasound. Consider follow-up nonemergent/or CT with liver mass protocol. URINALYSIS WITH MICRO 2019-10-24 00:56:00 Test Item Value Reference Range Interpretation Comments COLOR (test code = COLU) YELLOW YELLOW CLARITY (test code = CLA) SLT HAZY CLEAR A GLUCOSE UR (test code = UA GLUCOSE) NEGATIVE NEGATIVE BILI UR (test code = BILE) NEGATIVE NEGATIVE KETONES UR (test code = OH) NEGATIVE NEGATIVE SP GRAVITY (test code = SPGR) 1.020 1.005-1.030 PH UR (test code = PH) 8.5 4.5-8.0 H PROTEIN UR (test code = PU) TRACE NEGATIVE A UROBIL UR (test code = UROQ) 0.2 EU/dL 0.2-1.0 NITRITE UR (test code = NITRITE) NEGATIVE NEGATIVE BLOOD UR (test code = UA BLOOD) TRACE NEGATIVE A LEUK ES UR (test code = LEUK) 2+ NEGATIVE A WBC UR (test code = UWBC) 6 /HPF 0-5 H RBC UR (test code = URBC) 3 /HPF 0-2 H EPITH UR (test code = UEPC) FEW /LPF FEW BACTERIA UR (test code = UBACT) FEW /HPF NONE A CAST UR (test code = CAST) /LPF NONE CRYSTAL UR (test code = CRYU) / LPF NONE MUCUS UR (test code = MUC) FEW / HPF NONE A AMORPH UR (test code = AARON) / HPF NONE TRICH UR (test code = UTRICH) /HPF NONE YEAST UR (test code = UY) /HPF NONE SPERM UR (test code = USPERM) /HPF NONE CT STONE PROTOCOL STUDY 2019-10-24 00:46:24LOCATION: [id number] EXAM: CT STONE PROTOCOL STUDY HISTORY: [id number]: Abdominal pain TECHNIQUE: Axial imaging of the abdomen and pelvis from the lung base to thepubic symphysis without administration of intravenous contrast. Sagittal andcoronal reconstructions. CT scan performed using appropriate/available doseoptimization/reduction techniques.DLP 873.8 mGy*cmCOMPARISON: CTA chest 03/16/2019, right upper quadrant ultrasound 03/29/2019FINDINGS:Lung base:Mild bibasilar atelectasis. The heart size is normal. No pericardialor pleural effusion.Limited assessment of abdominal viscera in the absence of intravenous contrast.Liver/spleen: A 2.7 x 2.0 cm low-density lesion is present in the anterior lefthepatic lobe adjacent to the gallbladder fossa, corresponding to the echogenichepatic lesions on the prior ultrasound. The spleen is not visualized. A 2.0 cmsplenule is noted in the left anterior abdomen.Biliary system: The gallbladder is mildly distended, but not hydropic. Noradiopaque renal calculi. No biliary duct dilatation.Pancreas: Unremarkable. Postsurgical changes are noted along the margin of thepancreatic tail.Adrenal glands: Normal. Kidneys: Unremarkable. No radiopaque nephrolithiasis, hydronephrosis orperinephric fluid. The ureters are nondilated and only intermittently visible.No suspiciouscalcification is identified to indicate ureterolithiasis.Vascular: Normal caliber abdominal aorta. Lymph nodes: No abdominal lymphadenopathy. Pelvic structures: The urinary bladder is unremarkably distended. No pelviclymphadenopathy or free fluid. Uterus is retroverted. An intrauterine deviceis present. A small 2.5 x 1.8 cm left ovarian cyst is noted, consistent withphysiologic change in a patient of this age.Gastrointestinal tract: No abnormal bowel dilatation. Normal caliber appendixis identified. No focal fluid collections, ascites or evidence ofpneumoperitoneum. Bones and soft tissues: Theosseous structures are intact. IMPRESSION:1. No radiopaque renal calculi or secondary findings to indicate acute renalobstruction.2. Normal appendix.3. Mild distention of the gallbladder, which is otherwise unremarkable inappearance. If there is clinical concern for acute biliary pathology, considerright upper quadrant ultrasound.4. 2.7 cm hypodense lesion in the anterior left hepatic lobe corresponds to theechogenic lesion seen on the patient's prior ultrasound exam. This lesion isconsidered indeterminate. Further assessment with hepatic mass protocol CT orMRI is recommended on a nonemergent basis.AMYLASE AND LIPASE 2019-10-24 00:13:00 Test Item Value Reference Range Interpretation Comments AMYLASE (test code = 10A) 77 U/L 28-100 LIPASE (test code = 60A) 303 IU/L 73-393 COMPREHENSIVE METABOLIC NEELY *WW*2019-10-24 00:13:00 Test Item Value Reference Range Interpretation Comments GLUCOSE (test code = 06D) 123 mg/dL 75-100 H SODIUM (test code = 01A) 139 mmol/L 136-145 POTASSIUM (test code = 01B) 3.7 mmol/L 3.6-5.1 CHLORIDE (test code = 04A) 108 mmol/L 98-107 H CO2 (test code = 02A) 24 mmol/L 22-32 ANION GAP (test code = ANG) 10.7 mmol/L BUN (test code = 05D) 18 mg/dL 7-18 CREATININE (test code = 03E) 0.8 mg/dL 0.4-1.1 BUN/CREA (test code = BCR) 21 12-20 H CALCIUM (test code = 09D) 8.1 mg/dL 8.3-9.5 L BILI TOTAL (test code = 11A) 0.5 mg/dL 0.2-1.0 PROTEIN (test code = 07D) 6.6 g/dL 6.4-8.2 ALBUMIN (test code = 08D) 2.6 g/dL 3.5-4.8 L GLOBULIN (test code = GLB) 4.0 g/dL 1.5-3.8 H ALB/GLOB (test code = AGRR) 0.6 1.0-2.6 L ALK PHOS (test code = 35A) 88 IU/L 42-121 AST (test code = 30A) 122 IU/L <=42 H ALT (test code = 31A) 68 IU/L <=78 URINE MONOCLONAL *WW*2019-10-24 00:00:00 Test Item Value Reference Range Interpretation Comments PREG UR (test code = PGU) NEGATIVE NEGATIVE CBC (INCLUDES AUTOMATED DIFFERENTIAL)*[id number] 00:00:00 Test Item Value Reference Range Interpretation Comments WBC (test code = WBC) 12.7 10\\S\\3/uL 4.5-11.0 H RBC (test code = RBC) 3.47 10\\S\\6/uL 4.30-5.70 L HGB (test code = HBG) 10.9 g/dL 12.0-15.5 L HCT (test code = HCT) 32.5 % 35.0-44.0 L MCV (test code = MCV) 93.7 fL 81.0-99.0 MCH (test code = MCH) 31.4 pg 27.0-31.0 H MCHC (test code = MCHC) 33.5 g/dL 32.0-36.0 RDW (test code = RDW) 12.8 % 11.5-14.5 PLT (test code = PLT) 280 10\\S\\3/uL 130-400 MPV (test code = MPV) 10.1 fL 9.4-12.4 NEUTROP # (test code = NE#) 9.5 10\\S\\3/uL 1.6-8.0 H LYMPH # (test code = LY#) 1.8 10\\S\\3/uL 1.1-3.5 MONOCYTE # (test code = MO#) 1.1 10\\S\\3/uL 0.0-1.1 EOSINOPH # (test code = EO#) 0.1 10\\S\\3/uL 0.0-0.7 BASOPHIL # (test code = BA#) 0.1 10\\S\\3/uL 0.0-0.3 IG # (test code = IG#) 0.03 10\\S\\3/uL 0.00-0.06 NRBC # (test code = NRBC#) 0.00 10\\S\\3/uL 0.00-0.01 NEUTROPH % (test code = NE%) 75.1 % 35.0-73.0 H LYMPH % (test code = LY%) 14.5 % 20.0-55.0 L MONO % (test code = MO%) 9.0 % 2.5-10.0 EOSINOPH % (test code = EO%) 0.6 % 0.0-5.0 BASOPHIL % (test code = BA%) 0.6 % 0.0-2.0 IG % (test code = IG%) 0.2 % 0.0-0.8 NRBC% (test code = NRBC%) 0.0 % 0.0-0.2 MANDIFF (test code = WMDIFF) NO NO RBC MORPH (test code = NORMAL WRBCMOR) U/S ABDOMEN RUQ*WW*2019-03-29 19:35:59EXAM: Limited ultrasound of the abdomen and ultrasound of the appendixDictation location: [id number]: Right upper quadrant painCOMPARISON: NoneDISCUSSION: RIGHT UPPER QUADRANT ULTRASOUND:Garber scale and color images of the right upper quadrant of the abdomen wereobtained.LIVER: The liver is normal inechogenicity and size, measuring 15.9 cm inlength. There is a slightly hyperechoic liver mass near the gallbladdermeasuring 3.9 x 2.4 x 3.6 cm. No intrahepatic biliary ductal dilatation isseen.GALLBLADDER/COMMON BILE DUCT: Sludge is noted. No gallstones are identified.Gallbladder wall thickness measures 2.2 mm. No pericholecystic fluid is seen.The common bile duct measures 1.8 mm. The sonographic Gonzalez's sign isnegative.PANCREAS: The pancreatic neck is visualized and is unremarkable.RIGHT KIDNEY: The right kidney measures 10.9 x 3.9 x 5.1 cm. Renal corticalechogenicity is within normal limits. No mass, hydronephrosis, or calculi areidentified. VESSELS: There is hepatopetal flow in the main portal vein. Visualized portionsof the abdominal aorta and intrahepatic IVC are unremarkable.ULTRASOUND OF THE APPENDIX:Grayscale and color images of the right lower quadrant of the abdomen wereperformed. The appendix is unable to be identified. No fluid collection orobvious free fluid is seen.IMPRESSION:1. Gallbladder sludge. No gallstones, cholecystitis, or biliary ductaldilatation.2. Hyperechoic livermass near the gallbladder measuring 3.9 x 2.4 x 3.6 cm.This can be further characterized with liver mass protocol CT or MRI on anonemergent basis.3. Limited visualization the pancreas due to shadowing.4. The appendix is unable to be identified. This neither supports nor excludesthe diagnosis of acute appendicitis.U/S APPENDIX*WW*2019-03-29 19:35:59EXAM: Limited ultrasound of the abdomen and ultrasound of the appendixDictation location: [id number]: Right upper quadrant painCOMPARISON: NoneDISCUSSION: RIGHT UPPER QUADRANT ULTRASOUND:Garber scale and color images of the right upper quadrant of the abdomen wereobtained.LIVER: The liver is normal inechogenicity and size, measuring 15.9 cm inlength. There is a slightly hyperechoic liver mass near the gallbladdermeasuring 3.9 x 2.4 x 3.6 cm. No intrahepatic biliary ductal dilatation isseen.GALLBLADDER/COMMON BILE DUCT: Sludge is noted. No gallstones are identified.Gallbladder wall thickness measures 2.2 mm. No pericholecystic fluid is seen.The common bile duct measures 1.8 mm. The sonographic Gonzalez's sign isnegative.PANCREAS: The pancreatic neck is visualized and is unremarkable.RIGHT KIDNEY: The right kidney measures 10.9 x 3.9 x 5.1 cm. Renal corticalechogenicity is within normal limits. No mass, hydronephrosis, or calculi areidentified. VESSELS: There is hepatopetal flow in the main portal vein. Visualized portionsof the abdominal aorta and intrahepatic IVC are unremarkable.ULTRASOUND OF THE APPENDIX:Grayscale and color images of the right lower quadrant of the abdomen wereperformed. The appendix is unable to be identified. No fluid collection orobvious free fluid is seen.IMPRESSION:1. Gallbladder sludge. No gallstones, cholecystitis, or biliary ductaldilatation.2. Hyperechoic livermass near the gallbladder measuring 3.9 x 2.4 x 3.6 cm.This can be further characterized with liver mass protocol CT or MRI on anonemergent basis.3. Limited visualization the pancreas due to shadowing.4. The appendix is unable to be identified. This neither supports nor excludesthe diagnosis of acute appendicitis.CARDIAC PROFILE 2019-03-29 18:54:00 Test Item Value Reference Range Interpretation Comments TROPONIN I (test code = A84) <0.015 ng/mL 0.000-0.045 COMPREHENSIVE METABOLIC NEELY 2019-03-29 18:52:00 Test Item Value Reference Range Interpretation Comments GLUCOSE (test code = 06D) 83 mg/dL 75-100 SODIUM (test code = 01A) 140 mmol/L 136-145 POTASSIUM (test code = 01B) 3.8 mmol/L 3.6-5.1 CHLORIDE (test code = 04A) 106 mmol/L 98-107 CO2 (test code = 02A) 27 mmol/L 22-32 ANION GAP (test code = ANG) 10.8 mmol/L BUN (test code = 05D) 12 mg/dL 7-18 CREATININE (test code = 03E) 0.9 mg/dL 0.4-1.1 BUN/CREA (test code = BCR) 13 12-20 CALCIUM (test code = 09D) 8.2 mg/dL 8.3-9.5 L BILI TOTAL (test code = 11A) 0.2 mg/dL 0.2-1.0 PROTEIN (test code = 07D) 6.1 g/dL 6.4-8.2 L ALBUMIN (test code = 08D) 2.5 g/dL 3.5-4.8 L GLOBULIN (test code = GLB) 3.6 g/dL 1.5-3.8 ALB/GLOB (test code = AGRR) 0.7 1.0-2.6 L ALK PHOS (test code = 35A) 65 IU/L 42-121 AST (test code = 30A) 33 IU/L <=42 ALT (test code = 31A) 49 IU/L <=78 AMYLASE AND LIPASE *WW*2019-03-29 18:52:00 Test Item Value Reference Range Interpretation Comments AMYLASE (test code = 10A) 52 U/L 28-100 LIPASE (test code = 60A) 215 IU/L 73-393 PRO TIME AND PTT *WW*2019-03-29 18:51:00 Test Item Value Reference Range Interpretation Comments PT (test code = 10.5 s 9.8-13.6 TT) INR (test code = 0.9 INR) INRH (test code = SUGGESTED INRH) THERAPEUTIC RANGE FOR INR: 2.5 - 3.5 For Patients with Prosthetic Valves or Patients with recurrent Thromboembolic Events 2.0 - 3.0 For Most Other Applications PTT (test code = 25.6 s 20.2-38.0 PTT) PTTH (test code = To monitor the PTTH) effectiveness of heparin, we offer the Anti-Xa (Heparin Assay). It can be used for either unfractionated or LMW Heparin. Order Code is ANTI-XA URINE MONOCLONAL *WW*2019-03-29 18:38:00 Test Item Value Reference Range Interpretation Comments PREG UR (test code = PGU) NEGATIVE NEGATIVE URINALYSIS *WW*2019-03-29 18:37:00 Test Item Value Reference Range Interpretation Comments COLOR (test code = COLU) YELLOW YELLOW CLARITY (test code = CLA) CLEAR CLEAR GLUCOSE UR (test code = UA GLUCOSE) NEGATIVE NEGATIVE BILI UR (test code = BILE) NEGATIVE NEGATIVE KETONES UR (test code = OH) NEGATIVE NEGATIVE SP GRAVITY (test code = SPGR) 1.010 1.005-1.030 PH UR (test code = PH) 7.5 4.5-8.0 PROTEIN UR (test code = PU) NEGATIVE NEGATIVE UROBIL UR (test code = UROQ) 0.2 EU/dL 0.2-1.0 NITRITE UR (test code = NITRITE) NEGATIVE NEGATIVE BLOOD UR (test code = UA BLOOD) NEGATIVE NEGATIVE LEUK ES UR (test code = LEUK) NEGATIVE NEGATIVE AUAM (test code = WAUAM) NO NO CBC (INCLUDES AUTOMATED DIFFERENTIAL)*[id number] 18:36:00 Test Item Value Reference Range Interpretation Comments WBC (test code = WBC) 9.1 10\\S\\3/uL 4.5-11.0 RBC (test code = RBC) 3.46 10\\S\\6/uL 4.30-5.70 L HGB (test code = HBG) 11.0 g/dL 12.0-15.5 L HCT (test code = HCT) 32.4 % 35.0-44.0 L MCV (test code = MCV) 93.6 fL 81.0-99.0 MCH (test code = MCH) 31.8 pg 27.0-31.0 H MCHC (test code = MCHC) 34.0 g/dL 32.0-36.0 RDW (test code = RDW) 13.5 % 11.5-14.5 PLT (test code = PLT) 382 10\\S\\3/uL 130-400 MPV (test code = MPV) 9.8 fL 9.4-12.4 NEUTROP # (test code = NE#) 5.9 10\\S\\3/uL 1.6-8.0 LYMPH # (test code = LY#) 2.2 10\\S\\3/uL 1.1-3.5 MONOCYTE # (test code = MO#) 0.9 10\\S\\3/uL 0.0-1.1 EOSINOPH # (test code = EO#) 0.0 10\\S\\3/uL 0.0-0.7 BASOPHIL # (test code = BA#) 0.1 10\\S\\3/uL 0.0-0.3 IG # (test code = IG#) 0.01 10\\S\\3/uL 0.00-0.06 NRBC # (test code = NRBC#) 0.00 10\\S\\3/uL 0.00-0.01 NEUTROPH % (test code = NE%) 64.7 % 35.0-73.0 LYMPH % (test code = LY%) 24.4 % 20.0-55.0 MONO % (test code = MO%) 9.7 % 2.5-10.0 EOSINOPH % (test code = EO%) 0.3 % 0.0-5.0 BASOPHIL % (test code = BA%) 0.8 % 0.0-2.0 IG % (test code = IG%) 0.1 % 0.0-0.8 NRBC% (test code = NRBC%) 0.0 % 0.0-0.2 MANDIFF (test code = WMDIFF) NO NO RBC MORPH (test code = NORMAL WRBCMOR) XR CHEST 1 VIEW PORTABLE 2019-03-29 18:29:08EXAM: Portable chest x- rayDictation location: [id number]: Chest x-ray on 08/01/17INDICATION: [id number] 01: Abdominal painDISCUSSION:No consolidation or pleural effusion is seen. The cardiomediastinal silhouetteis within normal limits. No acute bony abnormalities are identified.IMPRESSION: No evidence of acute abnormality.CT PE PROTOCOL 2019-03-16 20:24:25LOCATION: [id number]: 43-year-old female who presents with dyspnea.COMMENT: Axial CT imaging of this patient's chest was obtained from the thoracic inletthrough the upper abdomen during IV contrast i njection with pulmonary embolismtechnique. Soft tissue and lung window images were submitted in the axialplane. Coronal, sagittal, and bilateral oblique coronal soft tissuereconstructions were included. One or more of the following dose reduction techniques are used: Automatedexposure control, adjus tment of the mA and/or kV according to patient size,and/or utilization of iterative reconstruction technique.DLP: 797.40 mGy-cmCONTRAST: 97 mL Omnipaque 350 nonionic contrast was injected into the leftantecubital vein. The serum creatinine level was 1.0FINDINGS: The pulmonary arteries exhibit no suspicious filling defects.The thoracic aorta and great vessels are unremarkable. The cardiac silhouetteand the pulmonary venous return is unremarkable. There is no evidence ofadenopathy. The thoracic inlet and chest wall are unremarkable. The visualizedupper abdomen is unremarkable.The lungs are clear.Postsurgical changes are seen medially in the patient's right breast.IMPRESSION:No acute findings are seen in this patient's chest on this CT examination.There is no evidence of a pulmonary embolism.. URINE MONOCLONAL 2019-03-16 17:11:00 Test Item Value Reference Range Interpretation Comments PREG UR (test code = PGU) NEGATIVE NEGATIVE URINALYSIS 2019-03-16 17:09:00 Test Item Value Reference Range Interpretation Comments COLOR (test code = COLU) YELLOW YELLOW CLARITY (test code = CLA) CLEAR CLEAR GLUCOSE UR (test code = UA GLUCOSE) NEGATIVE NEGATIVE BILI UR (test code = BILE) NEGATIVE NEGATIVE KETONES UR (test code = OH) NEGATIVE NEGATIVE SP GRAVITY (test code = SPGR) 1.010 1.005-1.030 PH UR (test code = PH) 7.5 4.5-8.0 PROTEIN UR (test code = PU) NEGATIVE NEGATIVE UROBIL UR (test code = UROQ) 0.2 EU/dL 0.2-1.0 NITRITE UR (test code = NITRITE) NEGATIVE NEGATIVE BLOOD UR (test code = UA BLOOD) NEGATIVE NEGATIVE LEUK ES UR (test code = LEUK) NEGATIVE NEGATIVE AUAM (test code = WAUAM) NO NO SERUM MONOCLONAL 2019-03-16 16:37:00 Test Item Value Reference Range Interpretation Comments PREG SRM (test code = PGS) NEGATIVE NEGATIVE BASIC METABOLIC PANEL 2019-03-16 16:35:00 Test Item Value Reference Range Interpretation Comments GLUCOSE (test code = 06D) 99 mg/dL 75-100 SODIUM (test code = 01A) 140 mmol/L 136-145 POTASSIUM (test code = 01B) 3.8 mmol/L 3.6-5.1 CHLORIDE (test code = 04A) 106 mmol/L 98-107 CO2 (test code = 02A) 28 mmol/L 22-32 ANION GAP (test code = ANG) 10.0 mmol/L BUN (test code = 05D) 19 mg/dL 7-18 H CREATININE (test code = 03E) 1.0 mg/dL 0.4-1.1 BUN/CREA (test code = BCR) 19 12-20 CALCIUM (test code = 09D) 8.2 mg/dL 8.3-9.5 L CBC (INCLUDES AUTOMATED DIFFERENTIAL)*[id number] 16:29:00 Test Item Value Reference Range Interpretation Comments WBC (test code = WBC) 7.0 10\\S\\3/uL 4.5-11.0 RBC (test code = RBC) 3.16 10\\S\\6/uL 4.30-5.70 L HGB (test code = HBG) 10.1 g/dL 12.0-15.5 L HCT (test code = HCT) 30.4 % 35.0-44.0 L MCV (test code = MCV) 96.2 fL 81.0-99.0 MCH (test code = MCH) 32.0 pg 27.0-31.0 H MCHC (test code = MCHC) 33.2 g/dL 32.0-36.0 RDW (test code = RDW) 13.6 % 11.5-14.5 PLT (test code = PLT) 298 10\\S\\3/uL 130-400 MPV (test code = MPV) 10.3 fL 9.4-12.4 NEUTROP # (test code = NE#) 4.6 10\\S\\3/uL 1.6-8.0 LYMPH # (test code = LY#) 1.7 10\\S\\3/uL 1.1-3.5 MONOCYTE # (test code = MO#) 0.5 10\\S\\3/uL 0.0-1.1 EOSINOPH # (test code = EO#) 0.1 10\\S\\3/uL 0.0-0.7 BASOPHIL # (test code = BA#) 0.1 10\\S\\3/uL 0.0-0.3 IG # (test code = IG#) 0.02 10\\S\\3/uL 0.00-0.06 NRBC # (test code = NRBC#) 0.00 10\\S\\3/uL 0.00-0.01 NEUTROPH % (test code = NE%) 66.3 % 35.0-73.0 LYMPH % (test code = LY%) 24.5 % 20.0-55.0 MONO % (test code = MO%) 6.6 % 2.5-10.0 EOSINOPH % (test code = EO%) 1.6 % 0.0-5.0 BASOPHIL % (test code = BA%) 0.7 % 0.0-2.0 IG % (test code = IG%) 0.3 % 0.0-0.8 NRBC% (test code = NRBC%) 0.0 % 0.0-0.2 MANDIFF (test code = WMDIFF) NO NO RBC MORPH (test code = NORMAL WRBCMOR) U/S NON [id number] 17:27:34Pelvic ultrasoundClinical indication: Pelvic painComparison: NoneLocation H0Hjnswk is examined with t ransabdominal and transvaginal scanning.Uterus is retroverted normal in size measuring 8.2 x 4.4 x 4.9 cm.Endometrium is normal in thickness measuring 11 mm. There is a poorly definedarea in the anterior fundus which could represent large leiomyoma measuring 3.8x 3.4 x 4.0 cm.The ovaries are normal insize with appropriate arterial flow. Right ovarymeasures 2.6 x 2.2 x 2.5 cm. Left ovary measures 2.4x 2.4 x 2.0 cm.Small amount of free fluid is present in the pelvis.Impression: Probable 4 cm leiomyoma, otherwise unremarkable- MRI BRAIN W WO [id number] 18:26:00 Patient Name: CANDI AYALA Unit No: [id number] EXAMS: CPT CODE: [id number] MRI BRAIN W WO CONT [id number] EXAM: MRI of the Brain without and with contrast Location code:J9 HISTORY: Malignant neoplasm COMPARISON: None available.TECHNIQUE:Sagittal T1, axial T1,T2, FLAIR, T2 GRE, Diffusion with ADC mapping, coronal T2 and post contrast axial and coronal T1 weighted images of the brain before and after contrast were obtained. Intravenous contrast administered: MultiHance, 20 mL FINDINGS: No diffusion abnormalities are identified to suggest acute ischemic infarction. No signal abnormalities are identified on T2 GRE images to suggest acute or chronic hemorrhagic products. There areno foci of abnormal parenchymal or leptomeningeal enhancement. The brain parenchymal volume and ventricular caliber are within normal limits. No mass lesions or extra-axial fluid collections are seen. Normal brain signal.. The midline structures including the corpus callosum, pituitary gland and sella, brainstem and craniocervical junction are normal. The posterior cranial fossa structures are normal. Normal signal voids are identified in the intracranial arterial vasculature and dural venous sinuses. The paranasal sinuses, mastoid air cells and orbits are within normal limits. IMPRESSION: Unremarkable exam. at 1826 Reported and signed by: Will Leach M.D. CC: Natalia Ocasio Technologist: Nino Crews RT(R) (MR) Transcrpt Date/Tm/Trnsp: 02/05/2019 (1826) [id number] Orig Print D/T: S: 02/05/2019 (1830) [facility]: CANDI AYALA N [address] PHYS: NAQSH - [place] [address] : 1975 AGE:43 SEX: F LOC: Z.MRI PHONE #: [phone] EXAM DATE: 02/05/2019 STATUS: REG CLI FAX #: [phone] RADIOLOGY NO: PAGE 1 Signed Report[[facility]] CMP [id number] 16:32:00 Test Item Value Reference Range Interpretation Comments GLUCOSE; Normal 107 mg/dl 65-139 N Non-fasting (test code = reference inter scot 1547-9) UREA NITROGEN (BUN) 15 mg/dl 7-25 N (test code = UREA NITROGEN (BUN)) CREATININE (test 0.86 mg/dl 0.50-1.10 N code = CREATININE) eGFR NON- 84 {ML/MIN/1.7} > OR = 60 N ARMENIAN (test code = eGFR NON-) eGFR 97 {ML/MIN/1.7} > OR = 60 N ARMENIAN (test code = eGFR ) BUN/CREATININE NOT APPLICABLE 6-22 RATIO (test code = BUN/CREATININE RATIO) SODIUM (test code = 141 mmol/L 135-146 N SODIUM) POTASSIUM (test 4.2 mmol/L 3.5-5.3 N code = POTASSIUM) CHLORIDE (test code 104 mmol/L 98-110 N = CHLORIDE) CARBON DIOXIDE 29 mmol/L 20-32 N (test code = CARBON DIOXIDE) CALCIUM (test code 9.2 mg/dl 8.6-10.2 N = CALCIUM) PROTEIN, TOTAL 6.7 g/dl 6.1-8.1 N (test code = PROTEIN, TOTAL) ALBUMIN (test code 3.4 g/dl 3.6-5.1 = ALBUMIN) GLOBULIN (test code 3.3 {G/DL CALC} 1.9-3.7 N = GLOBULIN) ALBUMIN/GLOBULIN 1.0 {CALC} 1.0-2.5 N RATIO (test code = ALBUMIN/GLOBULIN RATIO) BILIRUBIN, TOTAL; 0.3 mg/dl 0.2-1.2 N Normal (test code = 35566-2) ALKALINE PHSPHATASE 72 u/l 33-115 N (test code = ALKALINE PHSPHATASE) AST; Normal (test 16 u/l 10-30 N code = 1916-6) ALT; Normal (test 17 u/l 6-29 N code = 1742-6) [facility]] CBC (INCLUDES DIFF/PLT)2018-07-12 16:32:00 Test Item Value Reference Range Interpretation Comments WHITE BLOOD CELL COUNT 7.8 {Thousand/u} 3.8-10.8 N (test code = WHITE BLOOD CELL COUNT) RED BLOOD CELL COUNT (test 3.55 {Million/uL} 3.80-5.10 code = RED BLOOD CELL COUNT) HEMAGLOBIN; Below Low 10.9 g/dl 11.7-15.5 Threshold (test code = 32355-7) HEMATOCRIT; Below Low 32.5 % 35.0-45.0 Threshold (test code = 4544-3) MCV; Normal (test code = 91.5 fL 80.0-100.0 N 787-2) MCHC; Normal (test code = 33.5 g/dl 32.0-36.0 N 90274-9) RDW; Normal (test code = 13.1 % 11.0-15.0 N 788-0) PLATELET COUNT; Normal 301 {Thousand/u} 140-400 N (test code = 777-3) MPV; Normal (test code = 11.3 fL 7.5-12.5 N 00188-9) ABSOLUTE NEUTROPHILS (test 5015 {cells/uL} 8386-5124 N code = ABSOLUTE NEUTROPHILS) ABSOLUTE LYMPHOCYTES (test 2020 {cells/uL} 850-3900 N code = ABSOLUTE LYMPHOCYTES) ABSOLUTE MONOCYTES (test 585 {cells/uL} 200-950 N code = ABSOLUTE MONOCYTES) ABSOLUTE EOSINOPHILS (test 101 {cells/uL} 15-500 N code = ABSOLUTE EOSINOPHILS) ABSOLUTE BASOPHILS (test 78 {cells/uL} 0-200 N code = ABSOLUTE BASOPHILS) NEUTROPHILS (test code = 64.3 % N NEUTROPHILS) LYMPHOCYTES (test code = 25.9 % N LYMPHOCYTES) MONOCYTES; Normal (test 7.5 % N code = 50451-6) EOSINOPHILS; Normal (test 1.3 % N code = 64993-7) BASOPHILS; Normal (test 1.0 % N code = 32285-7) [facility] [id number] 12:03:00Surgical Pathology Report Case: [id number] Authorizing Provider: Myra Benjamin, Collected: 03/15/2018 1331 MD [facility]ing[facility] Received: 03/15/2018 1350 SERVICES Pathologist: Sandip Martinez MD Specimens: A) - Breast, Right, RIGHT BREAST LUMPECTOMY; LONG STITCH LATERAL, SHORT STITCH SUPERIOR, 2 CLIPS DEEP B) - Lymph Node, Axillary, Right, #1, 25 C) - Lymph Node,[place], Right Axilla, #2, 1511 D) - Breast, Right,NEW SUPERIOR MARGIN, STITCH GONZALEZ NEW MARGIN E) - Breast, Right, NEW INFERIOR MARGIN, STITCH GONZALEZ NEW MARGIN F) - Breast, Right, NEW ANTERIOR MARGIN, STITCH GONZALEZ NEW MARGIN REASON FOR ADDENDUM: TO REPORT HER2 FISH RESULT.HER2 AMPLIFICATION: POSITIVE (AMPLIFIED)RATIO (HER2:CEP17): 3.72AVERAGE NUMBER HER2 SIGNALS/ NUCLEUS: 7.0AVERAGE NUMBER CEP17 SIGNALS/NUCLEUS: 1.88See scanned ProPath ResultAdditional CPT (PB) codes : 62836 x 1Addendum electronically signed by Sandip Martinez MD on 04/06/2018 at 12:03 PMA. 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 - GREATEST MICROSCOPIC DIMENSION: 16 MM - HISTOLOGICAL GRADE: 3/3 (3+3+2) BY ESBR CRITERIA - MITOTIC INDEX: 12 MITOSES/10 HPF - TUMOR BED: 26 X 21 MM - TUMOR CELLULARITY: 40% - LYMPHOVASCULAR SPACE INVASION IDENTIFIED - SURGICAL MARGINS: POSITIVE AT ANTERIOR MARGIN - POSTERIOR MARGIN AT 2 MM - SUPERIOR MARGIN AT 5.5 MM - INFERIOR MARGIN AT 8 MM - ALL OTHER MARGINS MORE THAN 10 MM - DUCTAL CARCINOMA IN SITU (DCIS) - SEVERAL SCATTERED FOCI - DCIS SEEN IN 11 OF 25 TOTAL SLIDES - GREATESTMICROSCOPIC DIMENSION: 15 MM - NUCLEAR GRADE: 3/3 BY SBR CRITERIA - GROWTH PATTERN : SOLID AND CRIBRIFORM - CENTRAL NECROSIS IDENTIFIED - SURGICAL MARGINS: NEGATIVE - ANTERIOR AND POSTERIOR MARGINS AT 1 MM - INFERIOR MARGIN AT 4 MM - SUPERIOR MARGIN AT 5 MM - ALL OTHER MARGINS MORE THAN 10MM - ATYPICAL LOBULAR HYPERPLASIA - STROMAL CHANGES ASSOCIATED WITH NEOADJUVANT THERAPY - COLUMNAR CELL CHANGES - FIBROADENOMATOID CHANGES - MICROCALCIFICATIONS ASSOCIATED WITH DCIS AND BENIGN DUCTS - BIOPSY SITE CHANGES AND CLIP IDENTIFIED - BIOMARKERS PERFORMED ON SECTION # A-12 - ESTROGEN RECEPTOR: POSITIVE - PROPORTION SCORE: 5/5 - INTENSITY SCORE: 3/3 - SUMMARY: 95% POSITIVE, STRONG INTENSITY - PROGESTERONE RECEPTOR: POSITIVE - PROPORTION SCORE: 4/5 - INTENSITY SCORE: 2/3 - SUMMARY: 60% POSITIVE, INTERMEDIATE INTENSITY - HER 2 OVER-EXPRESSION: EQUIVOCAL (SCORE: 2+) - TISSUE SENT FOR HER2 FISH - Ki67: 31% (cut off-20%)B. LYMPH NODE, RIGHT AXILLARY SENTINEL #1, 25, BIOPSY: -FOUR BENIGN AXILLARY LYMPH NODES (0/4)C. LYMPH NODE, RIGHT AXILLARY SENTINEL #2, 1511, BIOPSY: - ONE BENIGN LYMPH NODE (0/1)D. BREAST, RIGHT, NEW SUPERIOR MARGIN, RE-EXCISION: - NO MALIGNANCY IDENTIFIEDE. BREAST, RIGHT, NEW INFERIOR MARGIN, RE-EXCISION: - NO MALIGNANCY IDENTIFIEDF. BREAST, RIGHT, NEWANTERIOR MARGIN, RE-EXCISION: - NO MALIGNANCY IDENTIFIED Signing Pathologist Direct Phone Line: [phone] signed by Milly Gonzalez MD on 03/22/2018 at 4:59 PMWith chromogranin and synaptophysin immunostains, the neoplastic cells are negative. Final anterior margin for the invasive carcinoma is approximately at 3 mm.TUMOR STAGE POST-NEOADJUVANT THERAPYTumor site: Right breastTumor type: Infiltrating ductal carcinoma, no special typeHistological grade: 3/3 by ESBR c riteriaTumor size: 16 mmTumor: [id number] nodes: ypN0 (sn)Stage: yIASurgical margins: Final surgical margins negativeLYMPH NODE SUMMARYTotal number of sentinel lymph nodes: 5Total number of positive sentinel lymph nodes: 0Total number of non-sentinel lymph nodes: 0RESIDUAL CANCER BURDEN: 1.927RESIDUAL C ANCER BURDEN INDEX: RCB-IIINVASIVE CARCINOMA OF THE BREAST (Breast Invasive - All Specimens)SPECIMEN Procedure: Excision (less than total mastectomy) Specimen Laterality: Right TUMOR Histologic Type: Invasive carcinoma of no special type (ductal, not otherwise specified) Glandular (Acinar) / Tubular Differentiation: Score 3 Nuclear Pleomorphism: Score 3 Mitotic Rate: Score 2 (4-7 mitoses per mm2) Overall Grade: Grade 3 (scores of 8 or 9) Tumor Size: Greatest dimension of largest invasive focus in Millimeters (mm):: 16 Millimeters (mm) Tumor Focality: Single focus of invasive carcinoma Ductal Carcinoma In Situ (DCIS): DCIS is present in specimen Size (Extent) of DCIS: Estimated size of DCIS greatest dimension in Millimeters (mm) is at least: 15 Millimeters (mm) Number of Blocks with DCIS: 11 Number of Blocks Examined: 25 Architectural Patterns: Cribriform Architectural Patterns: Solid Nuclear Grade: Grade III (high) Necrosis: Present, central (expansive "comedo" necrosis) Tumor Extent: Accessory Findings: Lymphovascular Invasion: Present Microcalcifications: Present in DCIS Microcalcifications: Present in non-neoplastic tissue Treatment Effect in the Breast: Probable or definite response to presurgical therapy in the invasive carcinoma Treatment Effect in the Lymph Nodes: No lymph node metastases and no prominent fibrous scarring in the nodes MARGINS Invasive Carcinoma Margins: Uninvolved by invasive carcinoma Distance from Closest Margin in Millimeters (mm): 2 Millimeters (mm) Closest Margin: Posterior DCIS Margins: Uninvolved by DCIS Distance of DCIS from Closest Margin in Millimeters (mm): 1 Millimeters (mm) Closest Margin: Anterior Closest Margin: Posterior LYMPH NODES Number of Lymph Nodes with Macrometastases (> 2 mm): 0 Number of Lymph Nodes with Micrometastases (> 0.2 mm to 2 mm and / or > 200 cells): 0 Number of Lymph Nodes Examined: 5 Number of [place] Nodes Examined: 5 PATHOLOGIC STAGE CLASSIFICATION (pTNM, AJCC 8th Edition)TNM Descriptors: y (post-treatment) Primary Tumor (Invasive Carcinoma) (pT): pT1c Regional Lymph Nodes (pN): Modifier: (sn): Only sentinel node(s) evaluated. If 6 or more nodes (sentinel or nonsentinel) are removed, this modifier should not be used. Category (pN): pN0 A. 72804, 97990, 41437 X4, 79112, 06028V. 91274P. 70064W. 98014O. 75405A. 18273 Right breast cancer HER2 positive, post-neoadjuvant therapyRight breast lumpectomy; B. Right axillary lymph node #1, count 25; C. Lymph node sentinel right axilla #2 count 1511; D. New superior margin right breast; E. Right breast new inferior margin; F. Right breast new anterior marginThe specimens are labeled with the patient's information.Specimen A received fresh for intraoperative consultation labeled "right breast lumpectomy, long stitch lateral, short stitch superior, 2 clips deep" is a single lumpectomy specimen weighing 28.5 gm and 4.2 x 7.5 x 2.5 cm, oriented with a short suture superior and a long suture lateral and marcela deep. The specimen is serially sectioned from medial to lateral into 10 consecutively ordered slices. A 2.6 x 2.1 x 2.1 cm, firm, garber tumor is present in slices 4 and 5. A clip is identified within slice # 4. The mass is 0.2 cm from the superior margin, 0.2 cm from the inferior margin, 0.8 cm from the medial margin, 1.2 cm from the lateral margin, 0.2 cm from the posterior margin, and 0.6 cm from the anterior margin. The remaining breast parenchyma is mainly fatty with no focal lesions.Ink code: Blue-superior, red-inferior, yellow- anterior, black-deep.Section code: A1-2, lateral margin, serially sectioned; A3- A4, medial margin, serially sectioned; A5-A6, slice #2, from superior to inferior; A7-A8, slice #3 from superior to inferior; A9, A10, slice #4 from superior to inferior with slice #9 containing clip; A11-13, slice #5 superior to inferior with 12 and 13 being bisectedinferior portion; A14-16, slice #6 from superior to inferior; A17-20, slice #7 from superior to inferior with 18 being superficial middle and 19 being deep middle; A21-23, slice #8 from superior to inferior; A24, 25, slice #9 from superior to inferior. The specimen is entirely submitted. DD/ewSpecimenB received in formalin and labeled "lymph node axillary right #1 count 25" consists of adipose tissue measuring 2.5 x 2 x 0.5 cm yielding three esteban-pink lymph nodes ranging from 0.2 to 1 cm, submitted entirely B1. Specimen C received in formalin and labeled "lymph node sentinel right axilla #2 counts 1511" consists of adipose tissue measuring 3 x 1.5 x 1 cm yielding a esteban fatty lymph node measuring 2.5 x 1 x 0.5 cm. Lymph node is bisected, submitted entirely C1 and C2. Specimen D received in formalin and labeled "right breast new superior margin" consists of a less than 1 gm segment of adipose tissue measuring 1.5 x 1 x 0.4 cm. There is a suture on one surface designating the new margin. The new margin is inked blue. The specimen is serially sectioned showing no areas of suspicion. New margin is entirely submitted D1 and D2. Specimen E received in formalin and labeled "right breast new inferiormargin" consists of a 2 gm segment of fibrofatty tissue measuring 2.6 x 2 x 0.5 cm. There is a suture on one surface designating the new margin. The new margin is inked red. The specimen is serially sectioned with no areas of suspicion. New margin is entirely submitted E1 through E3. Specimen F received in formalin and labeled "right breast new anterior margin" consists of a less than 1 gm segment ofadipose tissue measuring 1.5 x 1 x 0.3 cm. There is a suture on one surface which designates the newmargin. New margin is inked yellow and serially sectioned showing no areas of suspicion. New margin is entirely submitted F1. CG/pl INTRAOPERATIVE GROSS CONSULTATION DIAGNOSIS:BREAST, RIGHT, ULICES SCOUTLOCALIZED LUMPECTOMY: - MASS AND CALCIFICATIONS SEEN CLOSE TO THE ANTERIOR, POSTERIOR, AND INFERIOR EDGES - CALCS ALSO EXTEND TO SUPERIOR - CLIP SEEN - REPORTED BY DR. MARTINEZ TO DR. BENJAMIN AT 2:10 P.M. ON 03/15/18A. - F. Performed.The following special studies were performed on this case and the i nterpretation is incorporated in the diagnostic report above:[id number] REGULATION: FIXATION TIME FOR BIOMARKERS ASSESSMENTCollection date and time: 03/15/2018 1331Placedin fixative date and time: 03/15/2018 1331Removed from formalin date and time: 03/16/2018 1400Methodology: Fixation type and length: tissue was fixed in 10% neutral buffered formalin for a minimal of at least 6 hours and not longer than 72 hours. Antibody and Assay Methodology: Antibodies for ER, PgR, Her2 and Ki67 were assessed using clones SP1 ([employer]), 1294 (DAKO), 4B5 (FDA Approved [employer]) and 30-9 ([employer]) respectively. Control Slides Examined: In-house known ER, CT, HER2 and Ki67 positive controls were evaluated along with test tissue. These control slides run alongside of the patients sample show appropriate staining. Internal controls when available are evaluated.Interpret leana Criteria: The staining results according to the ASCO/CAP guidelines for HER2 (Mine EDDY et al. Arch Pathol Lab Med 2012Jul 16 and ER/CT (Gretchen LARA et al. Arch Pathol Lab Med 2010; 134:e48-e72) byASCO/CAP guidelines, ER and CT "positive" requires greater or equal to 1% tumor cells showing nuclear staining. HER 2 vangie "positive" (3+) requires circumferential membrane staining that is complete and intense within more than 10% of the invasive tumor cells. The ER/CT Proportion Score indicates theproportion of positive staining tumor cells (0 = none; 1 < 1/100; 2 = 1/100-1/10; 3 = 1/10-1/3; 4= 1/3-2/3; 5> 2/3). The intensity score indicates the average intensity of positive staining tumor cells (0 = none; 1 = weak; 2 = intermediate; 3 = strong). For the purpose of defining "positive",the proportion and intensity scores were added to obtain a total score (range 0-8). ER and PgR "positive" (total score >2) were defined in studies correlating IHC total scores with clinical outcomein patients receiving hormonal therapy (see: Modern Pathol 11:155, 1998; J Clin Oncol 17:1474, 1999; Int J Cancer 89:111, 2000; Breast Cancer Res Treat 76:S36[abst#30], 2002). Immunohistochemistry technical testing was performed at [facility] Pathology Laboratory where it was developed and its performance characteristics were determined. It has not been cleared or approved bythe U.S. Food and Drug Administration. The FDA has determined that such clearance or approval is notnecessary. The test is used for clinical purposes. It should not be regarded as investigational or for research. This laboratory is certified under the Clinical Laboratory Improvement Amendments of 1988 (CLIA-88) as qualified to perform high complexity clinical laboratory testing.[id number] 11:58:00 Test Item Value Reference Range Interpretation Comments HEMOGLOBIN (BEAKER) (test code = 10.4 GM/DL 11.2-15.7 L 410) SENTINEL NODE INJECTION, [id number] 17:30:00Reason for Exam:- >breast cancerFINAL REPORT PROCEDURE: SENTINEL NODE LOCALIZATION - NON IMAGING INDICATION: Right breast cancer PROTOCOL: A total of 4.0 mCi of Tc-99m tilmanocept was injected in the right breast by the nuclear power reactor operator. One aliquot was injected subcutaneously inthe subareolar area, and one aliquot was injected intradermally at the 1 o'clock position. IMPRESSION: Radiopharmaceutical injection for intraoperative sentinel node localization. Signed: Jasper Thompson MDReport Verified Date/Time: 03/14/2018 17:30:08 Reading Location: [address] MedReading Room U/S BREAST BIOPSY W/IMAGING [id number] 11:00:37 Addendum:Pathology from ultrasound-guided core biopsy of the right breast lesion at the1:00 positionon 08/01/17 was consistent with invasive ductal carcinoma, grade2 Jessica.Impression:1. ACR BI-RADS 6, known breast carcinoma.Recommendations: Imaging follow-up as clinically indicated after treatment. SERUM [id number] 03:56:00 Test Item Value Reference Range Interpretation Comments PREG SRM (test code = PGS) NEGATIVE NEGATIVE URINALYSIS WITH [id number] 22:40:00 Test Item Value Reference Range Interpretation Comments COLOR (test code = COLU) YELLOW YELLOW CLARITY (test code = CLA) CLEAR CLEAR GLUCOSE UR (test code = UA GLUCOSE) NEGATIVE NEGATIVE BILI UR (test code = BILE) NEGATIVE NEGATIVE KETONES UR (test code = OH) NEGATIVE NEGATIVE SP GRAVITY (test code = SPGR) 1.031 1.005-1.030 H PH UR (test code = PH) 6.0 4.5-8.0 PROTEIN UR (test code = PU) NEGATIVE NEGATIVE UROBIL UR (test code = UROQ) 0.2 EU/dL 0.2-1.0 NITRITE UR (test code = NITRITE) NEGATIVE NEGATIVE BLOOD UR (test code = UA BLOOD) 1+ NEGATIVE A LEUK ES UR (test code = LEUK) NEGATIVE NEGATIVE WBC UR (test code = UWBC) 0 /HPF 0-5 RBC UR (test code = URBC) 2 /HPF 0-2 EPITH UR (test code = UEPC) NONE /LPF FEW A BACTERIA UR (test code = UBACT) FEW /HPF NONE A CAST UR (test code = CAST) /LPF NONE CRYSTAL UR (test code = CRYU) / LPF NONE MUCUS UR (test code = MUC) FEW / HPF NONE A AMORPH UR (test code = AARON) / HPF NONE TRICH UR (test code = UTRICH) /HPF NONE YEAST UR (test code = UY) /HPF NONE SPERM UR (test code = USPERM) /HPF NONE DRUGS OF [id number] 22:34:00 Test Item Value Reference Range Interpretation Comments DRUG SCRN (test code URINE DRUG SCREEN = HDOA) This is an unconfirmed screening result and should not be used for non-medical purposes CANNABINOD (test code Negative NEGATIVE = 88C) AMPHETAMINE (test Negative NEGATIVE code = 84A) BENZODIAZP (test code Negative NEGATIVE = 86A) BARBITURAT (test code Negative NEGATIVE = 85A) OPIATES (test code = Negative NEGATIVE 92B) COCAINE (test code = Negative NEGATIVE 87A) PHENCYCLID (test code Negative NEGATIVE = 66A) METHADONE (test code Negative NEGATIVE = 64A) DOAH (test code = DOAH) *URINE DRUG SCREEN Cut-off values are as follows: Cannabinoids 50 ng/mL Cocaine 300 ng/mL Amphetamines 1000 ng/mL Phencyclidine 25 ng/mL Benzodiazepines 200 ng.mL Methadone 300 ng/mL Barbiturates 200 ng/mL Opiates 2000 ng/mL XR CHEST 1 VIEW [id number] 22:25:43STUDY: Chest radiographHISTORY: Medical clearanceCOMPARISON: 09/14/10TECHNIQUE: Frontal view of the chest. After hour services performed at 2137hours. LOCATION: [id number]:The cardiac and mediastinalsilhouette is unremarkable. The lungs arehyperinflated. There is no pleural effusion, pneumothorax or focalconsolidation.No acute osseous abnormalities are identified.IMPRESSION:Hyperinflated lungs without acute pulmonary abnormality.CBC (INCLUDES AUTOMATED DIFFERENTIAL)2017-08-01 22:24:00 Test Item Value Reference Range Interpretation Comments WBC (test code = WBC) 12.6 10\\S\\3/uL 4.5-11.0 H RBC (test code = RBC) 4.24 10\\S\\6/uL 4.30-5.70 L HGB (test code = HBG) 12.1 g/dL 12.0-15.5 HCT (test code = HCT) 37.0 % 35.0-44.0 MCV (test code = MCV) 87.3 fL 81.0-99.0 MCH (test code = MCH) 28.5 pg 27.0-31.0 MCHC (test code = MCHC) 32.7 g/dL 32.0-36.0 RDW (test code = RDW) 14.3 % 11.5-14.5 PLT (test code = PLT) 401 10\\S\\3/uL 130-400 H MPV (test code = MPV) 10.0 fL 9.4-12.4 NEUTROP # (test code = NE#) 7.4 10\\S\\3/uL 1.6-8.0 LYMPH # (test code = LY#) 3.8 10\\S\\3/uL 1.1-3.5 H MONOCYTE # (test code = MO#) 1.2 10\\S\\3/uL 0.0-1.1 H EOSINOPH # (test code = EO#) 0.1 10\\S\\3/uL 0.0-0.7 BASOPHIL # (test code = BA#) 0.1 10\\S\\3/uL 0.0-0.3 IG # (test code = IG#) 0.04 10\\S\\3/uL 0.00-0.06 NRBC # (test code = NRBC#) 0.00 10\\S\\3/uL 0.00-0.01 NEUTROPH % (test code = NE%) 58.5 % 35.0-73.0 LYMPH % (test code = LY%) 29.7 % 20.0-55.0 MONO % (test code = MO%) 9.4 % 2.5-10.0 EOSINOPH % (test code = EO%) 1.1 % 0.0-5.0 BASOPHIL % (test code = BA%) 1.0 % 0.0-2.0 IG % (test code = IG%) 0.3 % 0.0-0.8 NRBC% (test code = NRBC%) 0.0 % 0.0-0.2 MANDIFF (test code = MDIFF) NO NO RBC MORPH (test code = RBCMOR) NORMAL PRO TIME AND [id number] 10:13:00 Test Item Value Reference Range Interpretation Comments PT (test code = 11.6 s 9.8-13.6 TT) INR (test code = 1.0 INR) INRH (test code = SUGGESTED INRH) THERAPEUTIC RANGE FOR INR: 2.5 - 3.5 For Patients with Prosthetic Valves or Patients with recurrent Thromboembolic Events 2.0 - 3.0 For Most Other Applications PTT (test code = 29.2 s 20.2-38.0 PTT) PTTH (test code = To monitor the PTTH) effectiveness of heparin, we offer the Anti-Xa (Heparin Assay). It can be used for either unfractionated or LMW Heparin. Order Code is ANTI-XA CBC (INCLUDES AUTOMATED DIFFERENTIAL)2017-08-01 10:07:00 Test Item Value Reference Range Interpretation Comments WBC (test code = WBC) 11.2 10\\S\\3/uL 4.5-11.0 H RBC (test code = RBC) 4.11 10\\S\\6/uL 4.30-5.70 L HGB (test code = HBG) 11.8 g/dL 12.0-15.5 L HCT (test code = HCT) 35.6 % 35.0-44.0 MCV (test code = MCV) 86.6 fL 81.0-99.0 MCH (test code = MCH) 28.7 pg 27.0-31.0 MCHC (test code = MCHC) 33.1 g/dL 32.0-36.0 RDW (test code = RDW) 14.1 % 11.5-14.5 PLT (test code = PLT) 386 10\\S\\3/uL 130-400 MPV (test code = MPV) 9.9 fL 9.4-12.4 NEUTROP # (test code = NE#) 7.0 10\\S\\3/uL 1.6-8.0 LYMPH # (test code = LY#) 3.0 10\\S\\3/uL 1.1-3.5 MONOCYTE # (test code = MO#) 1.0 10\\S\\3/uL 0.0-1.1 EOSINOPH # (test code = EO#) 0.1 10\\S\\3/uL 0.0-0.7 BASOPHIL # (test code = BA#) 0.1 10\\S\\3/uL 0.0-0.3 IG # (test code = IG#) 0.03 10\\S\\3/uL 0.00-0.06 NRBC # (test code = NRBC#) 0.00 10\\S\\3/uL 0.00-0.01 NEUTROPH % (test code = NE%) 61.9 % 35.0-73.0 LYMPH % (test code = LY%) 27.0 % 20.0-55.0 MONO % (test code = MO%) 8.5 % 2.5-10.0 EOSINOPH % (test code = EO%) 1.1 % 0.0-5.0 BASOPHIL % (test code = BA%) 1.2 % 0.0-2.0 IG % (test code = IG%) 0.3 % 0.0-0.8 NRBC% (test code = NRBC%) 0.0 % 0.0-0.2 MANDIFF (test code = MDIFF) NO NO RBC MORPH (test code = RBCMOR) NORMAL WMMMOGRAM DIAGNOSTIC BILATERAL INC CAD [id number] 14:17:11Exam: Bilateral diagnostic digital mammogramHistory: Right breast lumpLocation: [id number]:Comparison is made to the exam of 06/26/15. There is interval development of aspiculated multilobulated mass in the upper medial right breast with multipleirregular microcalcifications and corresponding to a 3.4cm solid andhypervascular mass seen sonographically on the same day at the 1:00 position, 7cm from the nipple. There are no other masses or clustered microcalcificationsnoted. The breast parenchyma remains heterogeneously dense. The images werereviewed with R2.Impression:1. ACR BI-RADS 5, highly suspicious for malignancy.Recommendations: Ultrasound-guided core biopsy of the solid mass at the 1:00position of the right breast. Dr. Weston is being called with these resultsimmediately at 2:15 PM on 7. [employer] AccreditationFDA CertifiedBoard Certified Radiologists(ARRT) Registered Mammography TechnologistsNOTE: 1. A negative report should not delay biopsy if a dominant or clinicallysuspicious mass is present. 4 to 8% of cancers are not identified by x-ray.2. A negative report may reinforce clinical impression.3. Adenosis and dense breasts may obscure an underlying neoplasm.4. False positive results average 6 to 10%.5. Complete assessment of BI-RADS wording:A. Category 0 = Needs Additional Imaging Evaluation.B. Category 1 = Negative mammogram.C. Category 2 = Benign Finding.D. Category 3 = Probably Benign Finding - Short Interval Followup Suggested.E. Category 4 = Suspicious Abnormality.F. Category 5 = Highly Suggestive Of Malignancy.G. Category 6 = Known Malignancy.[facility]/S BREAST [id number] 14:14:44Exam: Right breast ultrasoundHistory: Palpable lumpLocation: [id number]: High resolution color and duplex sonography of all 4 quadrants andretroareolar region of the right breast was performed.Findings:There is an irregular lobulated mass at the 1:00 position, 7 cm from nipplewith hypervascularity aswell as some punctate calcifications correspondingwith the irregular spiculated mass in the right axi llary tail on mammographyfrom the same day. The lesion measures 3.4 x 2.3 x 2.5 cm. This was not presenton the previous mammogram dated 06/26/15 and highly suspicious for malignancy.No other solid or cystic masses are seen. No worrisome axillary lymphadenopathyis noted.Impression:ACR BI-RADS 5, highlysuspicious for malignancy.Recommendations: Ultrasound-guided core biopsy recommended. Dr. Weston is beingcalled with these results immediately at 2:15 PM on 07/26/17.
--- NOTE | 2021-04-16 03:57 | ER ---
Nurse's Notes [facility] Name: Natividad Mullins Age: 45 yrs Sex: Female : 1975 Arrival Date: 04/16/2021 Time: 03:09 Bed 15 Private MD: Diagnosis: Upper abdominal pain, unspecified Presentation: 04/16 03:33 Chief complaint: Patient states: RUQ and epigastric pain started about an hour ago. fu Coronavirus screen: At this time, the client does not indicate any symptoms associated with coronavirus-19. Ebola Screen: No symptoms or risks identified at this time. Initial Sepsis Screen: Does the patient meet any 2 criteria? No. Patient's initial sepsis screen is negative. Does the patient have a suspected source of infection? No. Patient's initial sepsis screen is negative. Risk Assessment: Do you want to hurt yourself or someone else? Patient reports no desire to harm self or others. Onset of symptoms was April 16, 2021 at 02:00. 03:33 Method Of Arrival: Ambulatory fu 03:33 Acuity: MARCOS 3 fu Historical: - Allergies: 03:36 Ciprofloxacin; fu - Home Meds: 03:48 Fareston 60 mg oral tab 1 tab once daily [Active]; clonazepam 1 mg Oral tab 1 tab daily fu [Active]; fluoxetine 40 mg Oral cap 1 cap every other day [Active]; - PMHx: 03:36 breast cancer; fatty liver; GERD; fu - PSHx: 03:36 right mastectomy; pancreas surgery; Cholecystectomy; fu - Immunization history:: Client reports receiving the 2nd dose of the Covid vaccine. - Social history:: Smoking status: Patient denies any tobacco usage or history of. Patient/guardian denies using tobacco products. Screenin:45 Abuse screen: Denies threats or abuse. Nutritional screening: No deficits noted. fu Tuberculosis screening: No symptoms or risk factors identified. Fall Risk None identified. Assessment: 03:45 General: Appears in no apparent distress. Behavior is calm, cooperative, appropriate fu for age. Pain: Complains of pain in RUQ amd epigastric pain Pain currently is 6 out of 10 on a pain scale. Quality of pain is described as aching, Pain began 1 1/2 hour ago. Neuro: Level of Consciousness is awake, alert, obeys commands, Oriented to person, place, time, situation, Moves all extremities. Gait is steady, Speech is normal, Facial symmetry appears normal. Cardiovascular: Denies nausea, vomiting. Respiratory: Respiratory effort is even, unlabored, Respiratory pattern is regular. GI: Bowel sounds present X 4 quads. Abd is soft. : Denies burning with urination. Derm: No signs and/or symptoms reported regarding the dermatologic system. 03:50 Reassessment: Patient refusing IV insertion and blood draw for BMP, CBC, Hepatic fu function, Lipase. Patient stated that she wanted GI cocktail and Morphine IM. MD notified. Vital Signs: 03:33 BP 112 / 84; Pulse 72; Resp 16; Temp 97.7(O); Pulse Ox 100% on R/A; Pain 6/10; fu ED Course: 03:09 Patient arrived in ED. 03:19 Teodoro Ken MD is Attending Physician. tw4 03:33 Franklyn Tolbert, RN is Primary Nurse. fu 03:36 Triage completed. fu 03:40 Patient has correct armband on for positive identification. Bed in low position. Call fu light in reach. Side rails up X 1. Pulse ox on. NIBP on. Warm blanket given. 04:10 No provider procedures requiring assistance completed. fu 04:15 Patient did not have IV access during this emergency room visit. fu Administered Medications: 04:10 Drug: GI Cocktail without - (Maalox Suspension 30 ml, Lidocaine Liquid 2 % 15 fu ml) Route: PO; 04:20 Follow up: Response: Pain is decreased fu 04:34 Not Given (Patient Refused; MD notifiedd): Zofran (Ondansetron) 4 mg IVP once; over 2 fu minutes Outcome: 04:31 AMA Other Patient left AMA, AMA form signed .Patient left ambulatory fu 04:35 Patient left the ED. fu Signatures: Keara Sams Felix, RN RN Teodoro Ken MD MD tw4 Corrections: (The following items were deleted from the chart) 03:44 03:36 PMHx: pancreas surgery; fu fu 03:44 03:36 PMHx: gerd, fatty liver; fu fu 03:51 03:48 Home Meds: vicodin as needed; fu fu
--- NOTE | 2021-04-16 03:57 | EDPHYS ---
Physician Documentation [facility] Name: Natividad Mullins Age: 45 yrs Sex: Female : 1975 Arrival Date: 04/16/2021 Time: 03:09 Bed 15 Private MD: WERO Physician Teodoro Ken HPI: 04/16 03:56 This 45 yrs old Female presents to ER via Ambulatory with complaints of tw4 Abdominal Pain, REFLUX. 03:56 The patient presents with abdominal pain in the epigastric area. Onset: The tw4 symptoms/episode began/occurred today. Onset: The symptoms/episode began/occurred just prior to arrival. The symptoms do not radiate. Associated signs and symptoms:. The symptoms are described as sharp. Modifying factors: The symptoms are alleviated by nothing, the symptoms are aggravated by nothing. The patient has not experienced similar symptoms in the past. Historical: - Allergies: 03:36 Ciprofloxacin; fu - Home Meds: 03:48 Fareston 60 mg oral tab 1 tab once daily [Active]; clonazepam 1 mg Oral tab 1 tab daily fu [Active]; fluoxetine 40 mg Oral cap 1 cap every other day [Active]; - PMHx: 03:36 breast cancer; fatty liver; GERD; fu - PSHx: 03:36 right mastectomy; pancreas surgery; Cholecystectomy; fu - Immunization history:: Client reports receiving the 2nd dose of the Covid vaccine. - Social history:: Smoking status: Patient denies any tobacco usage or history of. Patient/guardian denies using tobacco products. ROS: 03:56 Constitutional: Negative for fever, chills, and weight loss, Eyes: Negative for injury, tw4 pain, redness, and discharge, Cardiovascular: Negative for chest pain, palpitations, and edema, Respiratory: Negative for shortness of breath, cough, wheezing, and pleuritic chest pain, Back: Negative for injury and pain, MS/Extremity: Negative for injury and deformity, Skin: Negative for injury, rash, and discoloration, Neuro: Negative for headache, weakness, numbness, tingling, and seizure. 03:56 Abdomen/GI: Positive for abdominal pain, Negative for nausea and vomiting, nausea, vomiting, and diarrhea, nausea, abdominal cramps, abdominal distension, anorexia, dysphagia, hematemesis, black/tarry stool, rectal pain. Exam: 03:56 Constitutional: This is a well developed, well nourished patient who is awake, alert, tw4 and in no acute distress. Head/Face: Normocephalic, atraumatic. Chest/axilla: Normal chest wall appearance and motion. Nontender with no deformity. No lesions are appreciated. Cardiovascular: Regular rate and rhythm with a normal S1 and S2. No gallops, murmurs, or rubs. Normal PMI, no JVD. No pulse deficits. Respiratory: Lungs have equal breath sounds bilaterally, clear to auscultation and percussion. No rales, rhonchi or wheezes noted. No increased work of breathing, no retractions or nasal flaring. Back: No spinal tenderness. No costovertebral tenderness. Full range of motion. MS/ Extremity: Pulses equal, no cyanosis. Neurovascular intact. Full, normal range of motion. Neuro: Awake and alert, GCS 15, oriented to person, place, time, and situation. Cranial nerves II-XII grossly intact. Motor strength 5/5 in all extremities. Sensory grossly intact. Cerebellar exam normal. Normal gait. 03:56 Abdomen/GI: Inspection: abdomen appears normal, Bowel sounds: normal, Palpation: moderate abdominal tenderness, in the right upper quadrant. Vital Signs: 03:33 BP 112 / 84; Pulse 72; Resp 16; Temp 97.7(O); Pulse Ox 100% on R/A; Pain 6/10; fu MDM: 03:31 Patient medically screened. tw4 04:02 Data reviewed: vital signs, nurses notes. Data interpreted: Pulse oximetry: tw4 Interpretation: normal. Refusal of service: The patient/guardian displays adequate decision making capability and despite a detailed discussion of alternatives, benefits, risks, and consequences refuses: all lab tests, Medications. 04/16 03:19 Order name: Basic Metabolic Panel tw4 04/16 03:19 Order name: Hepatic Function tw4 04/16 03:19 Order name: IV Saline Lock tw4 04/16 03:19 Order name: Labs collected and sent tw4 Administered Medications: 04:10 Drug: GI Cocktail without - (Maalox Suspension 30 ml, Lidocaine Liquid 2 % 15 fu ml) Route: PO; 04:20 Follow up: Response: Pain is decreased fu 04:34 Not Given (Patient Refused; notifiedd): Zofran (Ondansetron) 4 mg IVP once; over 2 fu minutes Disposition Summary: 04/16/21 03:56 Left Against Medical Advice Location: Home tw4 Problem: new tw4 Symptoms: have improved tw4 Condition: Stable tw4 Diagnosis - Upper abdominal pain, unspecified tw4 Followup: tw4 - With: Private Physician - When: Upon discharge from the Emergency Department - Reason: Recheck today's complaints, Continuance of care, Re-evaluation by your physician Discharge Instructions: - Discharge Summary Sheet tw4 - Abdominal Pain, Adult tw4 - Pain Without a Known Cause tw4 Signatures: Dispatcher [employer] EDMS Franklyn Tolbert RN RN fu Wadley, Terrence, MD MD tw4 Corrections: (The following items were deleted from the chart) 03:44 03:36 PMHx: pancreas surgery; fu fu 03:44 03:36 PMHx: gerd, fatty liver; fu fu 03:51 03:48 Home Meds: vicodin as needed; fu fu
[2021-04-16] MEDS ORDERED: MAGNES/ALUMIN/SIMET 30ML UCUP ONE ×2 (04:20→04:22)
[2021-04-16] MEDS ORDERED: LIDOCAINE VISCOUS 2% SOLN 15 ML UDC ONE (04:21)
[2021-04-16 04:57] VITALS: BP 112/84; TEMP 97.7; O2SAT 100
== END 2021-04-16 04:35 | disposition left against medical advice (07) ==
LOC: ER 03:04
DX: R10.13 Epigastric pain (principal); K21.9 Gastro-esophageal reflux disease without esophagitis; Z85.3 Personal history of malignant neoplasm of breast; Z88.1 Allergy status to other antibiotic agents
CPT/HCPCS: 99283